=== PATIENT | male | born 1955 | race Two or more races ===

== ENCOUNTER → 2024-06-15 | Outpatient (CLI) | payer MEDICARE ==
[2024-06-15 16:00] LABS: INR 4.15 sec (0.93-1.11); Prothrombin Time 40.8 sec (9.9-11.9)
== END | disposition home or self-care (01) ==
LOC: LABWHC1 10:56
DX: Z00.00 Encounter for general adult medical examination without abnormal findings (principal)
CPT/HCPCS: 36415; 85610

== ENCOUNTER → 2024-06-20 | Outpatient (CLI) | payer MEDICARE ==
[2024-06-20 16:11] LABS: INR 2.59 sec (0.93-1.11); Prothrombin Time 26.3 sec (9.9-11.9)
== END | disposition home or self-care (01) ==
LOC: LABWHC1 12:00
DX: Z95.2 Presence of prosthetic heart valve (principal)
CPT/HCPCS: 36415; 85610

== ENCOUNTER → 2024-06-29 | Outpatient (CLI) | payer MEDICARE ==
[2024-06-29 16:08] LABS: INR 1.91 sec (0.93-1.11); Prothrombin Time 19.8 sec (9.9-11.9)
[2024-06-29 16:10] LABS: HCT 30.8 % (39.6-50.0); HGB 9.9 g/dL (13.0-17.0); MCH 30.9 pg (27.0-32.0); MCHC 32.1 g/dL (32.0-37.0); MCV 96.3 FL (80.0-97.0); Mean Platelet Volume 10.6 FL (9.5-12.2); NRBC Per 100 WBC 0 X 10*3/uL (0.00-0.01); Platelet Count 215 X 10*3/uL (140-440); WBC 6.59 X 10*3/uL (4.50-10.00)
[2024-06-29 16:45] LABS: % Iron Saturation 16.67 (15.00-50.00); ALT 30 U/L (10-49); AST 41 U/L (14-35); Albumin/Globulin Ratio 1.82 Ratio (1.60-3.17); Alkaline Phosphatase 130 U/L (41-126); Blood Urea Nitrogen 43.2 mg/dL (9.0-27.0); Calcium 10.6 mg/dL (8.7-10.3); Carbon Dioxide 25.5 mmol/L (21.6-31.8); Chloride 101 mmol/L (96-109); Chol/HDL Ratio 2.94 Ratio; Globulin 2.2 g/dL (1.6-3.3); Glucose 80 mg/dL (70-110); Iron 60 UG/DL (65-175); LDL Cholesterol,Calculated 65.1 mg/dL (0.0-131.0); Potassium 4.9 mmol/L (3.5-5.5); Prostate Specific Antigen 3.19 ng/mL (0.000-4.500); Sodium 137 mmol/L (135-145); Total Bilirubin 0.9 mg/dL (0.3-1.2); Total Iron Binding Capacity 360 UG/DL (228-460); Total Protein 6.2 g/dL (6.2-8.2)
[2024-06-29 16:48] LABS: Magnesium 0.9 mg/dL (1.5-2.4)
[2024-06-29 18:27] LABS: Microalbumin Creatinine Ratio <9 mg/g Cr (0-30)
== END | disposition home or self-care (01) ==
LOC: LABWHC1 09:38
CPT/HCPCS: 36415; 80053; 80061; 82043; 82570; 83540; 83550; 83735; 84153; 85027; 85610

== ENCOUNTER 2024-12-14 13:44 | Emergency (ER) | payer MEDICARE ==
[2024-12-14 14:51] LABS: Glucose,Whole Blood 94 mg/dL (70-110)
[2024-12-14 14:53] LABS: Basophils # (A) 0.03 10*3/uL (0.00-0.10); Basophils % (A) 0.4 %; HGB 9.8 g/dL (13.0-17.0); Lymphocytes # (A) 1.05 10*3/uL (0.90-5.00); Lymphocytes % (A) 12.6 %; MCH 27.5 pg (27.0-32.0); MCHC 33.8 g/dL (32.0-37.0); MCV 81.5 fL (80.0-97.0); Mean Platelet Volume 10.4 fL (9.5-12.2); Monocytes # (A) 0.77 10*3/uL (0.20-1.00); Monocytes % (A) 9.2 %; Neutrophils # (A) 6.47 10*3/uL (1.80-7.70); Neutrophils % (A) 77.3 %; Platelet Count 170 10*3/uL (140-440); RBC 3.56 10*6/uL (4.40-5.60); RDW 17.2 % (11.5-14.5); WBC 8.36 10*3/uL (4.50-10.00)
--- NOTE | 2024-12-14 14:55 | ED ---
General Adult HPI - General Source: patient, EMS, RN notes reviewed Mode of arrival: EMS Limitations: no limitations <Denia Saleem - Last Filed: 12/14/24 20:24> <Messi Meier - Last Filed: 12/14/24 20:57> <Sherri Sheets - Last Filed: 12/15/24 00:27> - General Chief complaint: Extremity Injury, Lower Stated complaint: confusion, right leg pain Time Seen by Provider: 12/14/24 13:53 - History of Present Illness Initial comments: 69-year-old male presents to the emergency department for evaluation of confusion and right leg pain. Patient states that both of the symptoms started when he woke up today around 8 AM. He states that he was confused about what medications he was supposed to be taking although he has it written down on the bottles. He also notes that he was unable to get out of bed because of pain in his right leg. He states that he attempted to get out of bed for 2 hours due to the pain but then had to call for help. He is on Coumadin for A-fib. He reports a history of thoracic aortic dissection. He also reports that he has been dealing with some low magnesium and therefore takes mag oxide 400 3 times daily. (Denia Saleem) - Related Data Home Medications Medication Instructions Recorded Confirmed Atorvastatin [Lipitor] 10 mg PO HS 12/14/24 12/14/24 Calcium Carbonate 500 mg PO QAM 12/14/24 12/14/24 Losartan Potassium [Cozaar] 100 mg PO QAM 12/14/24 12/14/24 Magnesium Oxide [Mag-Ox] 400 mg PO TID@0000,0800,159912/14/24 12/14/24 Metoprolol Tartrate [Lopressor] 100 mg PO BID 12/14/24 12/14/24 [place]-3/Dha/Epa/Fish Oil [Fish Oil 1 cap PO DAILY@1600 12/14/24 12/14/24 1,000 mg Softgel] Omeprazole [PriLOSEC] 20 mg PO QAM 12/14/24 12/14/24 Potassium Chloride [Klor-Con M20] 20 meq PO QAM 12/14/24 12/14/24 Triamterene/Hydrochlorothiazid 1 tab PO QAM 12/14/24 12/14/24 [Triamterene-Hctz 37.5-25 mg Tb] Warfarin [Coumadin] 10 mg PO DAILY@199912/14/24 12/14/24 metFORMIN HCL [Glucophage] 500 mg PO QAM 12/14/24 12/14/24 Allergies Allergy/AdvReac Type Severity Reaction Status Date / Time Iodinated Contrast Media Allergy Anaphylaxis Verified 12/14/24 14:56 Review of Systems ROS Other: All systems not noted in ROS Statement are negative. <Denia Saleem - Last Filed: 12/14/24 20:24> ROS Other: All systems not noted in ROS Statement are negative. <Messi Meier - Last Filed: 12/14/24 20:57> ROS Other: All systems not noted in ROS Statement are negative. <Sherri Sheets - Last Filed: 12/15/24 00:27> ROS Statement: Those systems with pertinent positive or pertinent negative responses have been documented in the HPI. Past Medical History Past Medical History: Atrial Fibrillation, CVA/TIA, Diabetes Mellitus, Hyperlipidemia, Hypertension Additional Past Medical History / Comment(s): Dissected aortic artery with was repaired with titanium heart valve, "desending aortic 5-7mm flap" History of Any Multi-Drug Resistant Organisms: None Reported Past Surgical History: Tonsillectomy Past Psychological History: No Psychological Hx Reported Smoking Status: Never smoker Past Alcohol Use History: None Reported Past Drug Use History: Marijuana <Denia Saleem - Last Filed: 12/14/24 20:24> General Exam Limitations: no limitations General appearance: alert, in no apparent distress Head exam: Present: atraumatic, normocephalic, normal inspection Eye exam: Present: normal appearance, PERRL, EOMI. Absent: scleral icterus, conjunctival injection, periorbital swelling Respiratory exam: Present: normal lung sounds bilaterally. Absent: respiratory distress, wheezes, rales, rhonchi, stridor Cardiovascular Exam: Present: regular rate, normal rhythm, normal heart sounds. Absent: systolic murmur, diastolic murmur, rubs, gallop, clicks GI/Abdominal exam: Present: soft, normal bowel sounds. Absent: distended, tenderness, guarding, rebound, rigid Extremities exam: Present: other (Distal pulses present in bilateral lower extremities). Absent: full ROM (Decreased range of motion at the right hip due to pain) Back exam: Present: normal inspection Neurological exam: Present: alert, oriented X3 Psychiatric exam: Present: normal affect, normal mood Skin exam: Present: warm, dry, intact, normal color. Absent: rash <Denia Saleem - Last Filed: 12/14/24 20:24> Course Vital Signs 12/14/24 12/14/24 12/14/24 13:48 14:48 18:00 Temperature 98.1 F Pulse Rate 72 61 88 Respiratory 18 20 16 Rate Blood Pressure 157/95 164/99 106/62 O2 Sat by Pulse 93 L 100 97 Oximetry 12/14/24 12/14/24 12/15/24 19:46 21:17 00:07 Temperature 98.7 F Pulse Rate 75 87 79 Respiratory 17 17 16 Rate Blood Pressure 124/56 136/86 126/74 O2 Sat by Pulse 99 99 99 Oximetry Medical Decision Making - Lab Data Result diagrams: 12/14/24 14:47 12/14/24 14:47 <Denia Saleem - Last Filed: 12/14/24 20:24> - Lab Data Result diagrams: 12/14/24 14:47 12/14/24 14:47 <Messi Meier - Last Filed: 12/14/24 20:57> - Lab Data Result diagrams: 12/14/24 14:47 12/14/24 14:47 <Sherri Sheets - Last Filed: 12/15/24 00:27> - Medical Decision Making Was pt. sent in by a medical professional or institution (, PA, HOSE CEMENTER, urgent care, hospital, or intermediate...) When possible be specific @ -[No] Did you speak to anyone other than the patient for history (EMS, parent, family, police, friend...)? What history was obtained from this source @ -[No] Did you review nursing and triage notes (agree or disagree)? Why? @ -[I reviewed and agree with nursing and triage notes] Were old charts reviewed (outside hosp., previous admission, EMS record, old EKG, old radiological studies, urgent care reports/EKG's, intermediate records)? Report findings @ -[No old charts were reviewed] Differential Diagnosis (chest pain, altered mental status, abdominal pain women, abdominal pain men, vaginal bleeding, weakness, fever, dyspnea, syncope, headache, dizziness, GI bleed, back pain, seizure, CVA, palpatations, mental health, musculoskeletal)? @ -Differential Musculoskeletal Muscular strain, contusion, ligament sprain, fracture, arthritis, septic arthritis, bursitis, cellulitis, muscle spasm, nerve compression, DVT, arterial occlusion, herpes zoster, electrolyte abnormality, tumor.... This is not meant to be in all inclusive list EKG interpreted by me (3pts min.). @ -[EKG [id number] shows A-fib rate 66, QRS 97, QTQTc [id number]] X-rays interpreted by me (1pt min.). @ -Chest x-ray revealsBilateral lower lobe subsegmental atelectasis, no focal consolidation CT interpreted by me (1pt min.). @ -CT of the brain reveals no acute bleed or mass effect, mild age-appropriate senescent changes U/S interpreted by me (1pt. min.). @ -[None done] What testing was considered but not performed or refused? (CT, X-rays, U/S, labs)? Why? @ -[None] What meds were considered but not given or refused? Why? @ -[None] Did you discuss the management of the patient with other professionals (professionals i.e. , PA, HOSE CEMENTER, lab, RT, psych nurse, director social service, lawyer real estate, teacher, ecological technical officer, employment evaluator/case manager)? Give summary @ -[Management discussed with Dr. Vance who recommends reversal of the Coumadin and likely transferred to a facility with higher level of care. Case was discussed with [facility] transfer adelanto. I discussed the case with Dr. Carlyle Malik, cardiothoracic surgery at [facility] who recommend the patient be transferred to the medical ICU] Was smoking cessation discussed for >3mins.? @ -[No] Was critical care preformed (if so, how long)? @ -[No] Were there social determinants of health that impacted care today? How? (Homelessness, low income, unemployed, alcoholism, drug addiction, transportation, low edu. Level, literacy, decrease access to med. care, usp, rehab)? @ -[No] Was there de-escalation of care discussed even if they declined (Discuss DNR or withdrawal of care, Hospice)? DNR status @ -[No] What co-morbidities impacted this encounter? (DM, HTN, Smoking, COPD, CAD, Cancer, CVA, ARF, Chemo, Hep., AIDS, mental health diagnosis, sleep apnea, morbid obesity)? @ -[Aortic dissection, A-fib] Was patient admitted / discharged? Hospital course, mention meds given and route, prescriptions, significant lab abnormalities, going to OR and other pertinent info. @ -[Transferred. Patient presented to the emergency department for right leg pain and confusion.Laboratory studies obtained revealing no significant leukocytosis, hemoglobin 9.8 which is stable for the patient; patient has significantly elevated INR at 7.6; CMP reveals potassium of 3.0 which was replaced orally, calcium 6.5 which was replaced IV, magnesium less than 0.4 which was also replaced IV. UA shows no evidence of infectious process urine drug screen positive for marijuana.. Brain CT shows no evidence of acute intracranial hemorrhage. Chest x-ray reveals findings consistent with atelectasis with no focal infiltrate. 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 No evidence of vascular occlusion. There is asymmetric enlargement of the right iliac us muscle with patchy heterogenous appearance and regions of fluid attenuation, the etiology could be intramuscular hematoma versus abscess versus other there is also small volume simple appearing fluid throughout the right paracolic gutter extending into the right pelvis which could represent a ruptured renal cyst versus other etiology. I discussed the case with vascular surgery who recommends reversal of Coumadin and likely transfer to a facility with higher level of care as the patient has been treated at [facility] in the past he recommends that the patient go there. I discussed the case with [facility] transfer center. Discussed with Dr. Carlyle Malik, cardiothoracic surgery at [facility] ] Undiagnosed new problem with uncertain prognosis? @ -[No] Drug Therapy requiring intensive monitoring for toxicity (Heparin, Nitro, Insulin, Cardizem)? @ -[No] Were any procedures done? @ -[No] Diagnosis/symptom? @ -[Hypomagnesemia, hypocalcemia, muscle hematoma] Acute, or Chronic, or Acute on Chronic? @ -Acute Uncomplicated (without systemic symptoms) or Complicated (systemic symptoms)? @ -Complicated Side effects of treatment? @ -[Patient on Coumadin, elevated INR] Exacerbation, Progression, or Severe Exacerbation? @ -[No] Poses a threat to life or bodily function? How? (Chest pain, USA, NC, pneumonia, PE, COPD, DKA, ARF, appy, cholecystitis, CVA, Diverticulitis, Homicidal, House icidal, threat to staff... and all critical care pts) @ -[Severe hypomagnesemia] (Denia Saleem) Patient was reevaluated myself, Dr. Meier. Patient still complaining of some discomfort left inguinal type region. CT reviewed. Concern for possible hematoma in the iliac muscle. Patient has coagulopathy. Patient was provided vitamin K. Patient has dissection which is reported as chronic. No evidence of acute occlusion. We are still attempting to transfer patient at this time, still waiting on further confirmation from [facility]. Patient updated on results and plan at this point. Patient does have several electrolyte abnormalities that have been replaced. Case will be endorsed to Dr. Sheets pending final disposition. (Messi Meier) [phone]- Spoke with Dr. Thapa at [facility] from SICU - accepts patient - awaiting bed placement at this time 1225 am 12/15/24 - called [facility] - bed available - 2606 bed A PCU. EMS called at this time (Sherri Sheets) - Lab Data Lab Results 12/14/24 12/14/24 12/14/24 Range/Units 14:47 14:47 14:47 WBC 8.36 (4.50-10.00) 10*3/uL RBC 3.56 L (4.40-5.60) 10*6/uL Hgb 9.8 L (13.0-17.0) g/dL Hct 29.0 L (39.6-50.0) % MCV 81.5 (80.0-97.0) fL MCH 27.5 (27.0-32.0) pg MCHC 33.8 (32.0-37.0) g/dL Plt Count 170 (140-440) 10*3/uL MPV 10.4 (9.5-12.2) fL Immature Gran % (Auto) 0.5 % Neutrophils % 77.3 % Lymphocytes % 12.6 % Monocytes % 9.2 % Eosinophils % 0.0 % Basophils % 0.4 % Immature Gran # 0.04 (0.00-0.04) 10*3/uL Neutrophils # 6.47 (1.80-7.70) 10*3/uL Lymphocytes # 1.05 (0.90-5.00) 10*3/uL Monocytes # 0.77 (0.20-1.00) 10*3/uL Eosinophils # 0.00 L (0.04-0.35) 10*3/uL Basophils # 0.03 (0.00-0.10) 10*3/uL PT 76.0 H (10.0-12.5) sec INR 7.6 H* (<1.2) APTT 33.8 H (22.0-30.0) sec Sodium 138 (137-145) mmol/L Potassium 3.0 L (3.5-5.1) mmol/L Chloride 105 (98-107) mmol/L Carbon Dioxide 23 (22-30) mmol/L Anion Gap 10 mmol/L BUN 24 H (9-20) mg/dL Creatinine 1.25 (0.66-1.25) mg/dL Est GFR (CKD-EPI)AfAm 68 (>60 ml/min/1.73 sqM) Est GFR (CKD-EPI)NonAf 59 (>60 ml/min/1.73 sqM) Glucose 81 (74-99) mg/dL POC Glucose (mg/dL) (70-110) mg/dL POC Glu Marketing Secretary ID Calcium 6.5 L (8.4-10.2) mg/dL Ionized Calcium Amilcar (4.5-5.3) mg/dL Phosphorus (2.5-4.5) mg/dL Magnesium (1.6-2.3) mg/dL Total Bilirubin 1.6 H (0.2-1.3) mg/dL AST 32 (17-59) U/L ALT 16 (4-49) U/L Alkaline Phosphatase 65 (38-126) U/L Troponin I (0.000-0.034) ng/mL Total Protein 6.1 L (6.3-8.2) g/dL Albumin 3.6 (3.5-5.0) g/dL Urine Color Urine Appearance (Clear) Urine pH (5.0-8.0) Ur Specific [place] (1.001-1.035) Urine Protein (Negative) Urine Glucose (UA) (Negative) Urine Ketones (Negative) Urine Blood (Negative) Urine Nitrite (Negative) Urine Bilirubin (Negative) Urine Urobilinogen (<2.0) mg/dL Ur Leukocyte Esterase (Negative) Urine RBC (0-5) /hpf Urine WBC (0-5) /hpf Ur Squamous Epith Cells (0-4) /hpf Urine Opiates Screen (NotDetected) Ur Oxycodone Screen (NotDetected) Urine Methadone Screen (NotDetected) Ur Barbiturates Screen (NotDetected) U Tricyclic Antidepress (NotDetected) Ur Phencyclidine Scrn (NotDetected) Ur Amphetamines Screen (NotDetected) U Methamphetamines Scrn (NotDetected) U Benzodiazepines Scrn (NotDetected) Urine Cocaine Screen (NotDetected) U Marijuana (THC) Screen (NotDetected) 12/14/24 12/14/24 12/14/24 Range/Units 14:47 14:50 15:43 WBC (4.50-10.00) 10*3/uL RBC (4.40-5.60) 10*6/uL Hgb (13.0-17.0) g/dL Hct (39.6-50.0) % MCV (80.0-97.0) fL MCH (27.0-32.0) pg MCHC (32.0-37.0) g/dL Plt Count (140-440) 10*3/uL MPV (9.5-12.2) fL Immature Gran % (Auto) % Neutrophils % % Lymphocytes % % Monocytes % % Eosinophils % % Basophils % % Immature Gran # (0.00-0.04) 10*3/uL Neutrophils # (1.80-7.70) 10*3/uL Lymphocytes # (0.90-5.00) 10*3/uL Monocytes # (0.20-1.00) 10*3/uL Eosinophils # (0.04-0.35) 10*3/uL Basophils # (0.00-0.10) 10*3/uL PT (10.0-12.5) sec INR (<1.2) APTT (22.0-30.0) sec Sodium (137-145) mmol/L Potassium (3.5-5.1) mmol/L Chloride (98-107) mmol/L Carbon Dioxide (22-30) mmol/L Anion Gap mmol/L BUN (9-20) mg/dL Creatinine (0.66-1.25) mg/dL Est GFR (CKD-EPI)AfAm (>60 ml/min/1.73 sqM) Est GFR (CKD-EPI)NonAf (>60 ml/min/1.73 sqM) Glucose (74-99) mg/dL POC Glucose (mg/dL) 94 (70-110) mg/dL POC Glu Marketing Secretary ID Juaquin Drake Calcium (8.4-10.2) mg/dL Ionized Calcium Amilcar (4.5-5.3) mg/dL Phosphorus 3.8 (2.5-4.5) mg/dL Magnesium <0.4 L* (1.6-2.3) mg/dL Total Bilirubin (0.2-1.3) mg/dL AST (17-59) U/L ALT (4-49) U/L Alkaline Phosphatase (38-126) U/L Troponin I 0.013 (0.000-0.034) ng/mL Total Protein (6.3-8.2) g/dL Albumin (3.5-5.0) g/dL Urine Color Urine Appearance (Clear) Urine pH (5.0-8.0) Ur Specific [place] (1.001-1.035) Urine Protein (Negative) Urine Glucose (UA) (Negative) Urine Ketones (Negative) Urine Blood (Negative) Urine Nitrite (Negative) Urine Bilirubin (Negative) Urine Urobilinogen (<2.0) mg/dL Ur Leukocyte Esterase (Negative) Urine RBC (0-5) /hpf Urine WBC (0-5) /hpf Ur Squamous Epith Cells (0-4) /hpf Urine Opiates Screen (NotDetected) Ur Oxycodone Screen (NotDetected) Urine Methadone Screen (NotDetected) Ur Barbiturates Screen (NotDetected) U Tricyclic Antidepress (NotDetected) Ur Phencyclidine Scrn (NotDetected) Ur Amphetamines Screen (NotDetected) U Methamphetamines Scrn (NotDetected) U Benzodiazepines Scrn (NotDetected) Urine Cocaine Screen (NotDetected) U Marijuana (THC) Screen (NotDetected) 12/14/24 12/14/24 Range/Units 16:00 19:40 WBC (4.50-10.00) 10*3/uL RBC (4.40-5.60) 10*6/uL Hgb (13.0-17.0) g/dL Hct (39.6-50.0) % MCV (80.0-97.0) fL MCH (27.0-32.0) pg MCHC (32.0-37.0) g/dL Plt Count (140-440) 10*3/uL MPV (9.5-12.2) fL Immature Gran % (Auto) % Neutrophils % % Lymphocytes % % Monocytes % % Eosinophils % % Basophils % % Immature Gran # (0.00-0.04) 10*3/uL Neutrophils # (1.80-7.70) 10*3/uL Lymphocytes # (0.90-5.00) 10*3/uL Monocytes # (0.20-1.00) 10*3/uL Eosinophils # (0.04-0.35) 10*3/uL Basophils # (0.00-0.10) 10*3/uL PT (10.0-12.5) sec INR (<1.2) APTT (22.0-30.0) sec Sodium (137-145) mmol/L Potassium (3.5-5.1) mmol/L Chloride (98-107) mmol/L Carbon Dioxide (22-30) mmol/L Anion Gap mmol/L BUN (9-20) mg/dL Creatinine (0.66-1.25) mg/dL Est GFR (CKD-EPI)AfAm (>60 ml/min/1.73 sqM) Est GFR (CKD-EPI)NonAf (>60 ml/min/1.73 sqM) Glucose (74-99) mg/dL POC Glucose (mg/dL) (70-110) mg/dL POC Glu Marketing Secretary ID Calcium (8.4-10.2) mg/dL Ionized Calcium Amilcar 3.1 L* (4.5-5.3) mg/dL Phosphorus (2.5-4.5) mg/dL Magnesium (1.6-2.3) mg/dL Total Bilirubin (0.2-1.3) mg/dL AST (17-59) U/L ALT (4-49) U/L Alkaline Phosphatase (38-126) U/L Troponin I (0.000-0.034) ng/mL Total Protein (6.3-8.2) g/dL Albumin (3.5-5.0) g/dL Urine Color Yellow Urine Appearance Clear (Clear) Urine pH 6.0 (5.0-8.0) Ur Specific [place] 1.013 (1.001-1.035) Urine Protein Negative (Negative) Urine Glucose (UA) Negative (Negative) Urine Ketones Negative (Negative) Urine Blood Trace H (Negative) Urine Nitrite Negative (Negative) Urine Bilirubin Negative (Negative) Urine Urobilinogen <2.0 (<2.0) mg/dL Ur Leukocyte Esterase Negative (Negative) Urine RBC 2 (0-5) /hpf Urine WBC 2 (0-5) /hpf Ur Squamous Epith Cells <1 (0-4) /hpf Urine Opiates Screen Not Detected (NotDetected) Ur Oxycodone Screen Not Detected (NotDetected) Urine Methadone Screen Not Detected (NotDetected) Ur Barbiturates Screen Not Detected (NotDetected) U Tricyclic Antidepress Not Detected (NotDetected) Ur Phencyclidine Scrn Not Detected (NotDetected) Ur Amphetamines Screen Not Detected (NotDetected) U Methamphetamines Scrn Not Detected (NotDetected) U Benzodiazepines Scrn Not Detected (NotDetected) Urine Cocaine Screen Not Detected (NotDetected) U Marijuana (THC) Screen Detected H (NotDetected) Critical Care Time Critical Care Time: Yes <Messi Meier - Last Filed: 12/14/24 20:57> Disposition <Denia Saleem - Last Filed: 12/14/24 20:24> Is patient prescribed a controlled substance at d/c from ED?: No - Out of Hospital Transfer - Req. Specs Out of Hospital Transfer - Requested Specifics: Medical ICU <Messi Meier - Last Filed: 12/14/24 20:57> Is patient prescribed a controlled substance at d/c from ED?: No Time of Disposition: 00:27 - Out of Hospital Transfer - Req. Specs Out of Hospital Transfer - Requested Specifics: Medical ICU ([facility]) <Sherri Sheets - Last Filed: 12/15/24 00:27> Clinical Impression: Hypomagnesemia, Hypocalcemia, Hematoma of muscle, Supratherapeutic INR Disposition: OTHER INSTITUTION NOT DEFINED Condition: Serious Referrals: Sunny Pierce DO [Primary Care Provider] - 1-2 days
--- NOTE | 2024-12-14 15:20 | XR ---
EXAMINATION TYPE: XR chest 2V DATE OF EXAM: 12/14/2024 3:14 PM COMPARISON: None TECHNIQUE: XR chest 2V Frontal and lateral views of the chest. CLINICAL INDICATION:Male, 69 years old with history of altered mental status; FINDINGS: Lungs/Pleura: No pleural effusion or pneumothorax. No focal consolidation. Minimal dependent bilatera l lower lobe subsegmental atelectasis. Pulmonary vascularity: Unremarkable. Heart/mediastinum: Cardiomediastinal silhouette is prominent in size. Cardiac valvular replacement. Musculoskeletal: No acute osseous pathology. Midline sternotomy wires are noted. Multilevel degenerat finesse disc disease of the thoracic spine. IMPRESSION: Minimal dependent bilateral lower lobe subsegmental atelectasis. No focal consolidation. [facility], , 12/14/2024 3:18 PM
[2024-12-14 15:22] LABS: ALT 16 U/L (4-49); AST 32 U/L (17-59); African American GFR (CKD) 68 (>60 ml/min/1.73 sqM); Albumin 3.6 g/dL (3.5-5.0); Alkaline Phosphatase 65 U/L (38-126); Anion Gap 10 mmol/L; Blood Urea Nitrogen 24 mg/dL (9-20); Calcium 6.5 mg/dL (8.4-10.2); Carbon Dioxide 23 mmol/L (22-30); Chloride 105 mmol/L (98-107); Glucose 81 mg/dL (74-99); Non-African American GFR(CKD) 59 (>60 ml/min/1.73 sqM); Sodium 138 mmol/L (137-145); Total Bilirubin 1.6 mg/dL (0.2-1.3); Total Protein 6.1 g/dL (6.3-8.2)
[2024-12-14 15:47] LABS: Partial Thromboplastin Time 33.8 sec (22.0-30.0)
[2024-12-14 15:52] LABS: Phosphorus 3.8 mg/dL (2.5-4.5)
[2024-12-14 15:59] LABS: Magnesium <0.4 mg/dL (1.6-2.3)
[2024-12-14] MEDS ORDERED: Magnesium Replacement Protocol 1 EACH MISC MISCELLANE PRN (16:02)
[2024-12-14] MEDS ORDERED: Potassium Replacement Protocol 1 EACH MISC MISCELLANE PRN (16:03)
[2024-12-14 16:20] LABS: INR 7.6 (<1.2)
[2024-12-14 16:23] LABS: Amphetamine Screen,Urine Not Detected (NotDetected); Barbiturate Screen,Urine Not Detected (NotDetected); Benzodiazepines Screen,Urine Not Detected (NotDetected); Cocaine Screen,Urine Not Detected (NotDetected); Methadone Screen, Urine Not Detected (NotDetected); Opiate Screen,Urine Not Detected (NotDetected); Oxycodone Screen, Urine Not Detected (NotDetected); Phencyclidine Screen,Urine Not Detected (NotDetected); Tricyclic Antidepressant,Urine Not Detected (NotDetected); Urn Cannabinoid Scrn Detected (NotDetected)
--- NOTE | 2024-12-14 16:23 | CT ---
EXAMINATION TYPE: CT brain wo con DATE OF EXAM: 12/14/2024 COMPARISON: None CLINICAL INDICATION: Male, 69 years old with history of confusion; PHH, confusion CT DLP: 1243.4 mGycm Automated exposure control for dose reduction was used. FINDINGS: The ventricles, basal cisterns and sulci over the convexities are within normal limits for the patien t's age. There is no mass effect or shift of midline structures. No abnormal density is seen throughout the brain parenchyma and there is no acute intra or extra-axia l hemorrhage. The posterior fossa and brainstem, fourth ventricle and cerebellar pontine angles appear normal. The intraorbital contents appear normal and symmetric. There is mild chronic inflammatory change in the right maxillary sinus. Remaining paranasal sinuses a nd mastoid air cells are well aerated. IMPRESSION: 1. No acute bleed or mass effect. 2. Mild age appropriate senescent changes. 3. Mild chronic inflammatory change left maxillary sinus. [facility], , 12/14/2024 4:21 PM
[2024-12-14 16:26] LABS: Appearance,Urine Clear (Clear); Bilirubin,Urine Negative (Negative); Blood,Urine Trace (Negative); Color,Urine Yellow; Glucose,Urine (UA) Negative (Negative); Ketones,Urine Negative (Negative); Leukocyte Esterase,Urine Negative (Negative); Nitrite,Urine Negative (Negative); Protein,Urine Negative (Negative); RBC,Urine 2 /hpf (0-5); Specific Gravity,Urine 1.013 (1.001-1.035); Squamous Epithelial Cell,Urine <1 /hpf (0-4); Urobilinogen,Urine <2.0 mg/dL (<2.0); WBC,Urine 2 /hpf (0-5)
[2024-12-14] MEDS: MAGNESIUM SULFATE-D5W PMX 1 GM in DEXTROSE/WATER 1 100ML.BAG IVPB SCH ×2 (16:27→21:37)
[2024-12-14] MEDS: POTASSIUM CHLORIDE ER 20 MEQ TAB.ER PO SCH (16:29)
[2024-12-14] MEDS: diphenhydrAMINE 50 MG/ML 1 ML VIAL IVP STA (17:54)
[2024-12-14] MEDS: FAMOTIDINE 20 MG/2 ML VIAL IV STA (17:55)
[2024-12-14] MEDS: methylPREDNISolone SOD SUCCI 125 MG/2 ML VIAL IV STA (17:58)
--- NOTE | 2024-12-14 19:01 | CT ---
EXAMINATION TYPE: CT angio abd pelvis W Run Off CT DLP: 3455.9 mGycm, Automated exposure control for dose reduction was used. DATE OF EXAM: 12/14/2024 6:39 PM COMPARISON: Chest radiograph 12/14/2024 CLINICAL INDICATION:Male, 69 years old with history of leg pain, hx of dissection'; Patient reports t o EC from home with complaints of right leg pain and confusion that started today. Patient denies any injuries. Hx of dissection. TECHNIQUE: Multiple thin slice sub-millimeter images were obtained through the abdomen, pelvis, and l ower extremities before and after administration of contrast. Patient was given Isovue 370, 100 cc i ntravenously. 3-D reconstructed images and maximum intensity projection images were obtained of the abdomen, pelvis, and lower extremities. FINDINGS: CTA Abdomen and pelvis: Fusiform aneurysmal dilatation of the descending thoracic aorta just above th e hiatus measuring up to 4.7 cm. The aneurysmal dilatation extends throughout the abdominal aorta zach suring up to 3.9 cm. No evidence for intramural hematoma on noncontrast imaging. Dissection flap iden tified within the descending thoracic aorta and extending throughout the abdominal aorta and into the right common iliac artery and right external iliac artery. There is enhancement throughout the false lumen. Atherosclerotic plaque of the aorta and its branches. The origins of the superior mesenteric artery, renal arteries, inferior mesenteric artery, and celiac axis are patent. It is difficult to de termine which is the true and false lumen due to similar attenuation of both lumens. Aneurysmal dilat ation of the bilateral common iliac arteries with the right measuring up to 2.0 cm and the left measu ring up to 2.3 cm. Atherosclerotic plaquing with some mural thrombus formation is identified in the c ommon iliac arteries. CTA Lower extremities: Right: The common femoral and superficial femoral arteries are patent. The popliteal artery is patent . Anterior and posterior tibial arteries as well as the peroneal artery are patent. Anterior and post erior tibial arteries cross the ankle. Left: The common femoral and superficial femoral arteries are patent. The popliteal artery is patent. Anterior and posterior tibial arteries as well as the peroneal artery are patent. Anterior and poste rior tibial arteries cross the ankle. VISCERA: The liver, spleen, adrenal glands, kidneys, pancreas, and gallbladder are not optimally enha nced due the arterial phase utilized. LIVER: Unremarkable GALLBLADDER AND BILE DUCTS: Unremarkable. PANCREAS: Unremarkable. SPLEEN: Unremarkable. ADRENAL GLANDS: Unremarkable. KIDNEYS AND URETERS: No evidence of hydronephrosis or renal calculus. Bilateral simple appearing monica l cyst. No follow-up recommended. PELVIS BLADDER: Unremarkable REPRODUCTIVE: Unremarkable. ABDOMEN & PELVIS STOMACH AND BOWEL: Stomach and duodenum are unremarkable. No focal bowel wall thickening. No evidence of bowel obstruction. PERITONEUM: No evidence of pneumoperitoneum. Small amount of simple appearing fluid within the right paracolic gutter extending to the right pelvis. VASCULATURE: No evidence of aortic aneurysm. MUSCULOSKELETAL: No acute osseous abnormalities. Asymmetric enlargement of the right iliacus muscle w ith heterogenous appearance. No focal region of hyperattenuation. Bilateral lower extremity subcutane ous edema with right greater than left. LYMPH NODES: No evidence for lymphadenopathy. SOFT TISSUE/ABDOMINAL WALL: Unremarkable LOWER CHEST: The visualized lung bases are clear. Dense mitral anus calcifications. IMPRESSION: 1. Aneurysmal dilatation of the visualized distal thoracic aorta throughout the abdominal aorta. Add itional aneurysmal dilatation of the bilateral common iliac arteries. Dissection of the thoracic aort a extending through the abdominal aorta into the right common iliac artery and into the right externa l iliac artery. There is similar contrast opacification of the true and false lumens. Patient has rep orted history of dissection. No comparison available. No evidence for vascular occlusion. 2. Asymmetric enlargement of the right iliacus muscle with patchy heterogenous appearance and region s of fluid attenuation. No significant hyperdense focus identified. Etiologies include intramuscular hematoma versus abscess versus other. Consider tissue sampling. 3. Small volume simple appearing fluid throughout the right paracolic gutter extending into the right pelvis. Could represent a ruptured renal cyst versus other etiologies. [facility], , 12/14/2024 6:58 PM
[2024-12-14] MEDS: CALCIUM GLUCONATE IN NACL 1 GM in SALINE 1 100ML.BAG IVPB ONE (19:41)
[2024-12-14] MEDS: PHYTONADIONE 5 MG in SODIUM CHLORIDE 0.9% 50 ML IVPB ONE (20:16)
[2024-12-14] MEDS: MORPHINE SULFATE 4 MG/ML SYRINGE IVP STA (21:18)
[2024-12-14] MEDS: POTASSIUM CHLORIDE 20 MEQ in WATER FOR INJECTION 1 100ML.BAG IVPB STA (21:20)
[2024-12-14] MEDS: MAGNESIUM OXIDE 400 MG TAB PO SCH (21:45)
[2024-12-15 00:08] VITALS: BP 126/74
[2024-12-15 01:03] VITALS: PULSE 86; RESP 17; TEMP 98.2
== END 2024-12-15 01:03 | disposition other institution (70) ==
LOC: EC 13:44
DX: S30.1XXA Contusion of abdominal wall, initial encounter (principal); E83.42 Hypomagnesemia; E83.51 Hypocalcemia; R79.1 Abnormal coagulation profile; Z91.041 Radiographic dye allergy status; X58.XXXA Exposure to other specified factors, initial encounter
CPT/HCPCS: 36415; 93005; 80053; 82330; 83735; 84100; 84484; 85025; 85610; 85730; 81001; 80306; 71046; 70450; 75635; 71275; 99285; 96365; 96368; 96367 ×2; 96366; 96375; J2270; J3430; J1200; J3480; J3475; J0613; J2919; J1308

== ENCOUNTER → 2024-12-21 | Outpatient (CLI) | payer MEDICARE ==
[2024-12-21 11:07] LABS: INR 1.5 (<1.2)
== END | disposition home or self-care (01) ==
LOC: LABWHC1 09:42
PROVIDERS: ATTEND Family Medicine
DX: Z79.01 Long term (current) use of anticoagulants (principal); Z95.4 Presence of other heart-valve replacement
CPT/HCPCS: 36415; 85610

== ENCOUNTER → 2024-12-23 | Outpatient (CLI) | payer MEDICARE ==
[2024-12-23 10:53] LABS: INR 2.5 (<1.2); Prothrombin Time 24.8 sec (10.0-12.5)
== END | disposition home or self-care (01) ==
LOC: LABWHC1 09:11
PROVIDERS: ATTEND Family Medicine
DX: Z79.01 Long term (current) use of anticoagulants (principal); Z95.4 Presence of other heart-valve replacement
CPT/HCPCS: 36415; 85610

== ENCOUNTER 2024-12-28 17:42 | Observation (INO) | payer MEDICARE ==
[2024-12-28 18:32] LABS: Basophils # (A) 0.08 10*3/uL (0.00-0.10); Eosinophils # (A) 0.25 10*3/uL (0.04-0.35); Eosinophils % (A) 3.1 %; HCT 34.6 % (39.6-50.0); HGB 11.3 g/dL (13.0-17.0); Lymphocytes % (A) 24.7 %; MCH 28.5 pg (27.0-32.0); MCHC 32.7 g/dL (32.0-37.0); Mean Platelet Volume 10.3 fL (9.5-12.2); Monocytes # (A) 0.82 10*3/uL (0.20-1.00); Monocytes % (A) 10.1 %; Neutrophils # (A) 4.87 10*3/uL (1.80-7.70); Neutrophils % (A) 60.2 %; Platelet Count 244 10*3/uL (140-440); RBC 3.97 10*6/uL (4.40-5.60); RDW 19.3 % (11.5-14.5); WBC 8.09 10*3/uL (4.50-10.00)
[2024-12-28 18:51] LABS: INR 2.8 (<1.2); Partial Thromboplastin Time 28.2 sec (22.0-30.0)
[2024-12-28 18:55] LABS: ALT 27 U/L (4-49); AST 38 U/L (17-59); African American GFR (CKD) 47 (>60 ml/min/1.73 sqM); Albumin 4.7 g/dL (3.5-5.0); Alkaline Phosphatase 73 U/L (38-126); Anion Gap 15 mmol/L; Blood Urea Nitrogen 50 mg/dL (9-20); Calcium 10.6 mg/dL (8.4-10.2); Carbon Dioxide 20 mmol/L (22-30); Chloride 104 mmol/L (98-107); Glucose 83 mg/dL (74-99); Non-African American GFR(CKD) 40 (>60 ml/min/1.73 sqM); Phosphorus 3.7 mg/dL (2.5-4.5); Potassium 4.4 mmol/L (3.5-5.1); Sodium 139 mmol/L (137-145); Total Bilirubin 1.9 mg/dL (0.2-1.3); Total Protein 7.7 g/dL (6.3-8.2)
[2024-12-28 18:59] LABS: Magnesium 0.7 mg/dL (1.6-2.3)
[2024-12-28 19:08] LABS: MCV 87.2 fL (80.0-97.0)
[2024-12-28] MEDS ORDERED: Magnesium Replacement Protocol 1 EACH MISC MISCELLANE PRN (19:08)
--- NOTE | 2024-12-28 19:08 | ED ---
Recheck HPI - General Chief Complaint: Recheck/Abnormal Lab/Rx Stated Complaint: Abnormal Labs Time Seen by Provider: 12/28/24 17:57 Source: patient, EMS, RN notes reviewed Mode of arrival: EMS Limitations: no limitations - History of Present Illness Initial Comments: This is a 69-year-old male who presents to the emergency department for low magnesium. Patient was discharged from [facility] last week. He had initially come to this facility with leg pain and confusion. He ended up being transferred to [facility] for an intramuscular hematoma and concerns of a thoracic dissection. 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 When he was transferred to [facility], states that they did not do anything other than monitor his vital signs for a week. He had lab work done today as part of the routine checkup following his discharge and he received a phone call saying that his magnesium was 0.8 and he needed to come to the emergency department. Patient states that he has been dealing with low magnesium levels and currently takes 400 mg of magnesium oxide every 8 hours. States that he otherwise feels fine for the most part. MD Complaint: abnormal lab - Related Data Home Medications Medication Instructions Recorded Confirmed Atorvastatin [Lipitor] 10 mg PO HS@199912/14/24 12/28/24 Calcium Carbonate 500 mg PO DAILY@79912/14/24 12/28/24 Losartan Potassium [Cozaar] 100 mg PO DAILY@79912/14/24 12/28/24 Magnesium Oxide [Mag-Ox] 400 mg PO TID@0000,08,159912/14/24 12/28/24 Metoprolol Tartrate [Lopressor] 100 mg PO BID@12/14/24 12/28/24 [place]-3/Dha/Epa/Fish Oil [Fish Oil 1 cap PO DAILY@159912/14/24 12/28/24 1,000 mg Softgel] Omeprazole [PriLOSEC] 20 mg PO DAILY@79912/14/24 12/28/24 Potassium Chloride [Klor-Con M20] 20 meq PO DAILY@79912/14/24 12/28/24 Triamterene/Hydrochlorothiazid 1 tab PO DAILY@79912/14/24 12/28/24 [Triamterene-Hctz 37.5-25 mg Tb] Warfarin [Coumadin] 12.5 mg PO HS@199912/14/24 12/28/24 metFORMIN HCL [Glucophage] 500 mg PO DAILY@0812/14/24 12/28/24 Allergies Allergy/AdvReac Type Severity Reaction Status Date / Time Iodinated Contrast Media Allergy Anaphylaxis Verified 12/28/24 19:47 Review of Systems ROS Statement: Those systems with pertinent positive or pertinent negative responses have been documented in the HPI. ROS Other: All systems not noted in ROS Statement are negative. Past Medical History Past Medical History: Atrial Fibrillation, CVA/TIA, Diabetes Mellitus, Hyperlipidemia, Hypertension Additional Past Medical History / Comment(s): Dissected aortic artery with was repaired with titanium heart valve, "desending aortic 5-7mm flap" History of Any Multi-Drug Resistant Organisms: None Reported Past Surgical History: Tonsillectomy Past Psychological History: No Psychological Hx Reported Smoking Status: Never smoker Past Alcohol Use History: None Reported Past Drug Use History: Marijuana General Exam Limitations: no limitations General appearance: alert, in no apparent distress Head exam: Present: atraumatic, normocephalic, normal inspection Respiratory exam: Present: normal lung sounds bilaterally. Absent: respiratory distress, wheezes, rales, rhonchi, stridor Cardiovascular Exam: Present: regular rate, normal rhythm Neurological exam: Present: alert, oriented X3, CN II-XII intact Psychiatric exam: Present: normal affect, normal mood Skin exam: Present: warm, dry, intact, normal color. Absent: rash Course Vital Signs 12/28/24 12/28/24 12/28/24 17:49 19:41 21:35 Temperature 97.7 F Pulse Rate 81 86 70 Respiratory 18 18 16 Rate Blood Pressure 93/58 100/67 114/63 O2 Sat by Pulse 98 96 96 Oximetry 12/28/24 23:39 Temperature Pulse Rate 73 Respiratory 18 Rate Blood Pressure 98/54 O2 Sat by Pulse 97 Oximetry Medical Decision Making - Medical Decision Making This is a 69-year-old male who presents to the emergency department for low magnesium levels. Was pt. sent in by a medical professional or institution? @ -His PCP Did you speak to anyone other than the patient for history? @ -No Did you review nursing and triage notes? @ -Yes, and I agree, it is accurate with regards to the patient's symptoms. Were old charts reviewed? @ -No Differential Diagnosis? @ -Renal function, dietary intake, medications, this is not meant to be an all- inclusive list. EKG interpreted by me (3pts min.)? @ -EKG interpreted by me demonstrating the following: Atrial fibrillation. Ventricular rate 84 bpm, QRS duration 105 ms, QTc 382 ms. X-rays interpreted by me (1pt min.)? @ -Not obtained CT interpreted by me (1pt min.)? @ -Not obtained U/S interpreted by me (1pt. min.)? @ -Not obtained What testing was considered but not performed? (CT, X-rays, U/S, labs)? Why? @ -None What meds were considered but not given? Why? @ -None Did you discuss the management of the patient with other professionals? @ -Yes, Mónica Luu with [facility], who accepts the patient for admission Did you reconcile home meds? @ -No Was smoking cessation discussed for >3mins.? @ -No Was critical care preformed (if so, how long)? @ -No Were there social determinants of health that impacted care today? How? (Homelessness, low income, unemployed, alcoholism, drug addiction, transportation, low edu. Level, literacy, decrease access to med. care, correction, re hab)? @ -No Was there de-escalation of care discussed even if they declined? (Discuss DNR or withdrawal of care, Hospice)? @ -No What co-morbidities impacted this encounter? (DM, HTN, Smoking, COPD, CAD, Cancer, CVA, Hep., AIDS, mental health diagnosis, sleep apnea, morbid obesity)? @ -A-fib, DM, HLD, HTN Was patient admitted / discharged? @ -Admitted. Lab work demonstrates hypomagnesemia with a magnesium of 0.7. He also has an WINSOME with a creatinine of 1.71 and eGFR of 40. Urinalysis negative for signs of infection. Magnesium protocol initiated and 4 g of magnesium sulfate were administered. He had also been given a liter bolus of IV fluids and started on maintenance fluids at 50 mL an hour. Patient admitted to medicine for hypomagnesemia and WINSOME. Consult placed for nephrology regarding both of these things. Case discussed with ED attending Dr. Sheets. Undiagnosed new problem with uncertain prognosis? @ -None Drug Therapy requiring intensive monitoring for toxicity (Heparin, Nitro, Insulin, Cardizem)? @ -None Were any procedures done? @ -None Diagnosis/symptom? @ -Hypomagnesemia, WINSOME Acute, or Chronic, or Acute on Chronic? @ -Acute Uncomplicated (without systemic symptoms) or Complicated (systemic symptoms)? @ -Uncomplicated Side effects of treatment? @ -None Exacerbation, Progression, or Severe Exacerbation] @ -Not applicable Poses a threat to life or bodily function? @ -Yes, persistently low magnesium can lead to arrhythmias, which can be life- threatening - Lab Data Result diagrams: 12/28/24 18:27 12/28/24 18:27 Lab Results 12/28/24 12/28/24 12/28/24 Range/Units 18:27 18:27 18:27 WBC 8.09 (4.50-10.00) 10*3/uL RBC 3.97 L (4.40-5.60) 10*6/uL Hgb 11.3 L (13.0-17.0) g/dL Hct 34.6 L (39.6-50.0) % MCV 87.2 D (80.0-97.0) fL MCH 28.5 (27.0-32.0) pg MCHC 32.7 (32.0-37.0) g/dL Plt Count 244 (140-440) 10*3/uL MPV 10.3 (9.5-12.2) fL Immature Gran % (Auto) 0.9 % Neutrophils % 60.2 % Lymphocytes % 24.7 % Monocytes % 10.1 % Eosinophils % 3.1 % Basophils % 1.0 % Immature Gran # 0.07 H (0.00-0.04) 10*3/uL Neutrophils # 4.87 (1.80-7.70) 10*3/uL Lymphocytes # 2.00 (0.90-5.00) 10*3/uL Monocytes # 0.82 (0.20-1.00) 10*3/uL Eosinophils # 0.25 (0.04-0.35) 10*3/uL Basophils # 0.08 (0.00-0.10) 10*3/uL PT 28.0 H (10.0-12.5) sec INR 2.8 H (<1.2) APTT 28.2 (22.0-30.0) sec Sodium 139 (137-145) mmol/L Potassium 4.4 (3.5-5.1) mmol/L Chloride 104 (98-107) mmol/L Carbon Dioxide 20 L (22-30) mmol/L Anion Gap 15 mmol/L BUN 50 H (9-20) mg/dL Creatinine 1.71 H (0.66-1.25) mg/dL Est GFR (CKD-EPI)AfAm 47 (>60 ml/min/1.73 sqM) Est GFR (CKD-EPI)NonAf 40 (>60 ml/min/1.73 sqM) Glucose 83 (74-99) mg/dL Calcium 10.6 H (8.4-10.2) mg/dL Phosphorus 3.7 (2.5-4.5) mg/dL Magnesium 0.7 L* (1.6-2.3) mg/dL Total Bilirubin 1.9 H (0.2-1.3) mg/dL AST 38 (17-59) U/L ALT 27 (4-49) U/L Alkaline Phosphatase 73 (38-126) U/L Total Protein 7.7 (6.3-8.2) g/dL Albumin 4.7 (3.5-5.0) g/dL Disposition Clinical Impression: Hypomagnesemia, WINSOME (acute kidney injury) Disposition: ADMITTED IP TO THIS HOSP
[2024-12-28] MEDS: SODIUM CHLORIDE 0.9% 1,000 ML IV ONE (19:13)
[2024-12-28] MEDS: MAGNESIUM SULFATE-D5W PMX 1 GM in DEXTROSE/WATER 1 100ML.BAG IVPB SCH (19:14)
[2024-12-28] MEDS ORDERED: NALOXONE 0.4 MG/ML 1 ML VIAL IV PRN (19:19)
[2024-12-28] MEDS ORDERED: ACETAMINOPHEN TAB 325 MG TAB PO PRN (19:19)
[2024-12-28] MEDS ORDERED: HYDROcodone/APAP 5-325MG 1 EACH TAB PO PRN (19:19)
[2024-12-28] MEDS ORDERED: MORPHINE SULFATE 4 MG/ML SYRINGE IV PRN (19:19)
[2024-12-28] MEDS: SODIUM CHLORIDE 0.9% 1,000 ML IV SCH (20:46)
[2024-12-28 21:41] LABS: Appearance,Urine Clear (Clear); Bilirubin,Urine Negative (Negative); Blood,Urine Negative (Negative); Color,Urine Colorless; Glucose,Urine (UA) Negative (Negative); Ketones,Urine Negative (Negative); Leukocyte Esterase,Urine Negative (Negative); Nitrite,Urine Negative (Negative); Protein,Urine Negative (Negative); Specific Gravity,Urine 1.012 (1.001-1.035); Urobilinogen,Urine <2.0 mg/dL (<2.0)
[2024-12-29] MEDS ORDERED: DEXTROSE 50% SYRINGE 50 ML IVP PRN ×2 (02:16)
[2024-12-29 05:51] LABS: Glucose,Whole Blood 106 mg/dL (70-110)
[2024-12-29] MEDS: INSULIN LISPRO (HumaLOG) 100 UNIT/ML 10 mL VL SQ SCH (06:02)
[2024-12-29 07:18] LABS: African American GFR (CKD) 63 (>60 ml/min/1.73 sqM); Anion Gap 9 mmol/L; Blood Urea Nitrogen 40 mg/dL (9-20); Calcium 10.4 mg/dL (8.4-10.2); Carbon Dioxide 24 mmol/L (22-30); Chloride 103 mmol/L (98-107); Glucose 87 mg/dL (74-99); INR 2.8 (<1.2); Non-African American GFR(CKD) 54 (>60 ml/min/1.73 sqM); Potassium 4.1 mmol/L (3.5-5.1); Prothrombin Time 27.8 sec (10.0-12.5); Sodium 136 mmol/L (137-145)
[2024-12-29] MEDS: METOPROLOL TARTRATE 50 MG TAB PO SCH (08:35)
[2024-12-29] MEDS: MAGNESIUM OXIDE 400 MG TAB PO SCH (08:36)
[2024-12-29] MEDS: metFORMIN 500 MG TAB PO SCH (08:36)
[2024-12-29] MEDS: POTASSIUM CHLORIDE ER 20 MEQ TAB.ER PO SCH (08:36)
[2024-12-29 11:52] LABS: Glucose,Whole Blood 84 mg/dL (70-110)
[2024-12-29] MEDS: PANTOPRAZOLE 40 MG TABLET PO SCH (12:27)
[2024-12-29] MEDS: MAGNESIUM SULFATE-D5W PMX 1 GM in DEXTROSE/WATER 1 100ML.BAG IVPB SCH (14:11)
[2024-12-29] MEDS ORDERED: Magnesium Replacement Protocol 1 EACH MISC MISCELLANE PRN (14:47)
[2024-12-29] MEDS: MAGNESIUM SULFATE-D5W PMX 1 GM in DEXTROSE/WATER 1 100ML.BAG IVPB ONE (15:03)
[2024-12-29 15:45] VITALS: BP 108/68; PULSE 55; RESP 17; TEMP 98.8
[2024-12-29 17:18] LABS: Glucose,Whole Blood 102 mg/dL (70-110)
[2024-12-29] MEDS ORDERED: WARFARIN 2.5 MG TAB PO SCH (20:00)
[2024-12-29] MEDS ORDERED: WARFARIN 10 MG TAB PO SCH (20:00)
[2024-12-29] MEDS ORDERED: ATORVASTATIN 10 MG TAB PO SCH (20:00)
--- NOTE | 2024-12-29 21:00 | P.HPIM ---
History of Present Illness H&P Date: 12/29/24 This is a very pleasant 69-year-old male who presented to the emergency department after receiving a telephone call from his primary care provider's office that his magnesium was critically low and to present to the ER for further evaluation. On admission labs reviewed and magnesium was 0.7, total bili 1.9, calcium 10.6, creatinine 1.71 with a BUN of 50, INR is 2.8, white count is normal at 8.09. Patient reports he has been having chronic issues with low magnesium and takes 400 mg 3 times daily. Patient was admitted with electrolyte abnormalities with replacement per protocol. Elderly appearing REVIEW OF SYSTEMS: CONSTITUTIONAL: No fever, no malaise, no fatigue. HEENT: No recent visual problems or hearing problems. Denied any sore throat. CARDIOVASCULAR: No chest pain, orthopnea, PND, no palpitations, no syncope. PULMONARY: No shortness of breath, no cough, no hemoptysis. GASTROINTESTINAL: No diarrhea, no nausea, no vomiting, no abdominal pain. NEUROLOGICAL: No headaches, no weakness, no numbness. HEMATOLOGICAL: Denies any bleeding or petechiae. GENITOURINARY: Denies any burning micturition, frequency, or urgency. MUSCULOSKELETAL/RHEUMATOLOGICAL: Denies any joint pain, swelling, or any muscle pain. ENDOCRINE: Denies any polyuria or polydipsia. The rest of the 14-point review of systems is negative. PHYSICAL EXAMINATION: GENERAL: The patient is alert and oriented x3, not in any acute distress. Well developed, elderly appearing, thin built HEENT: Pupils are round and equally reacting to light. EOMI. No scleral icterus. No conjunctival pallor. Normocephalic, atraumatic. No pharyngeal erythema. No thyromegaly. CARDIOVASCULAR: S1 and S2 muffled, A-fib on the monitor PULMONARY: Chest is clear to auscultation, no wheezing or crackles. ABDOMEN: Soft, nontender, nondistended, normoactive bowel sounds. No palpable organomegaly. MUSCULOSKELETAL: No joint swelling or deformity. EXTREMITIES: No cyanosis, clubbing, or pedal edema. NEUROLOGICAL: Gross neurological examination did not reveal any focal deficits. SKIN: No rashes. 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 GI prophylaxis DVT prophylaxis No code Plan: Patient was admitted with severe hypomagnesemia noted to be 0.7 and replacement this morning was 1.3 and will give 3 more grams and continue with 400 mg p.o. 3 times daily Blood pressure on the softer side and takes losartan along with triamterene/hydrochlorothiazide. Will decrease the dose to losartan 50 mg daily and instructed the patient if blood pressure is increasing may take additional dose and recommend holding triamterene/hydrochlorothiazide as this also can cause complications with electrolyte abnormalities Patient instructed to follow-up with [facility] in the outpatient setting along with primary care provider Patient will be replaced per protocol of magnesium with outpatient labs ordered and will be discharged later today. The impression and plan of care has been dictated by Ana Fraser, Nurse Practitioner as directed. Dr. Bradford MD I have performed a history and examination and MDM of this patient, discussed the same with the dictator, and agree with the dictator's assessment and plan as written ,documented as a scribe. Based on total visit time, I have performed more than 50% of the visit. 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 heart valve, "descending aortic 5-7mm flap" History of Any Multi-Drug Resistant Organisms: None Reported Past Surgical History: Tonsillectomy Past Psychological History: No Psychological Hx Reported Smoking Status: Never smoker Past Alcohol Use History: None Reported Past Drug Use History: Marijuana - Past Family History Mother Family Medical History: No Reported History Father Family Medical History: No Reported History Sister(s) Additional Family Medical History / Comment(s): " of brain aneurysm in her late 50s" Medications and Allergies Home Medications Medication Instructions Recorded Confirmed Type Atorvastatin [Lipitor] 10 mg PO HS@199912/14/24 12/28/24 History Calcium Carbonate 500 mg PO DAILY@0800 12/14/24 12/28/24 History Magnesium Oxide [Mag-Ox] 400 mg PO TID@0000,0800,1600 12/14/24 12/28/24 History Metoprolol Tartrate [Lopressor] 100 mg PO BID@0800,199912/14/24 12/28/24 History [place]-3/Dha/Epa/Fish Oil [Fish Oil 1 cap PO DAILY@159912/14/24 12/28/24 History 1,000 mg Softgel] Omeprazole [PriLOSEC] 20 mg PO DAILY@0800 12/14/24 12/28/24 History Potassium Chloride [Klor-Con M20] 20 meq PO DAILY@0812/14/24 12/28/24 History Warfarin [Coumadin] 12.5 mg PO HS@199912/14/24 12/28/24 History metFORMIN HCL [Glucophage] 500 mg PO DAILY@79912/14/24 12/28/24 History Acetaminophen Tab [Tylenol] 650 mg PO Q6HR PRN tab 12/29/24 Rx Losartan Potassium [Cozaar] 50 mg PO DAILY@0800 #0 12/29/24 12/28/24 Rx Allergies Allergy/AdvReac Type Severity Reaction Status Date / Time Iodinated Contrast Media Allergy Anaphylaxis Verified 12/28/24 19:47 Physical Exam Vitals: Vital Signs Temp Pulse Pulse Resp BP BP Pulse Ox 12/29/24 07:00 98.3 F 75 14 119/68 99 12/29/24 00:58 97.5 F L 75 20 113/61 98 12/28/24 23:39 73 18 98/54 97 12/28/24 21:35 70 16 114/63 96 12/28/24 19:41 86 18 100/67 96 12/28/24 17:49 97.7 F 81 18 93/58 98 Intake and Output 12/28/24 12/29/24 12/29/24 22:59 06:59 14:59 Output Total 150 Balance -150 Output: Urine 150 Other: Voiding Method Toilet Toilet # Voids 1 Weight 96.615 kg 96.615 kg Results CBC & Chem 7: 12/28/24 18:27 12/29/24 06:35 Labs: Abnormal Lab Results - Last 24 Hours (Table) 12/28/24 12/28/24 12/28/24 Range/Units 18:27 18:27 18:27 RBC 3.97 L (4.40-5.60) 10*6/uL Hgb 11.3 L (13.0-17.0) g/dL Hct 34.6 L (39.6-50.0) % Immature Gran # 0.07 H (0.00-0.04) 10*3/uL PT 28.0 H (10.0-12.5) sec INR 2.8 H (<1.2) Sodium (137-145) mmol/L Carbon Dioxide 20 L (22-30) mmol/L BUN 50 H (9-20) mg/dL Creatinine 1.71 H (0.66-1.25) mg/dL Calcium 10.6 H (8.4-10.2) mg/dL Magnesium 0.7 L* (1.6-2.3) mg/dL Total Bilirubin 1.9 H (0.2-1.3) mg/dL 12/29/24 12/29/24 Range/Units 06:35 06:35 RBC (4.40-5.60) 10*6/uL Hgb (13.0-17.0) g/dL Hct (39.6-50.0) % Immature Gran # (0.00-0.04) 10*3/uL PT 27.8 H (10.0-12.5) sec INR 2.8 H (<1.2) Sodium 136 L (137-145) mmol/L Carbon Dioxide (22-30) mmol/L BUN 40 H (9-20) mg/dL Creatinine 1.34 H (0.66-1.25) mg/dL Calcium 10.4 H (8.4-10.2) mg/dL Magnesium (1.6-2.3) mg/dL Total Bilirubin (0.2-1.3) mg/dL Thrombosis Risk Factor Assmnt - Choose All That Apply Each Factor Represents 1 point: Obesity (BMI >25) Each Risk Factor Represents 2 Points: Age 61-74 years Thrombosis Risk Factor Assessment Total Risk Factor Score: 3 Thrombosis Risk Factor Assessment Level: Moderate Risk
--- NOTE | 2024-12-29 21:02 | P.DS ---
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 Patient will follow-up with Dr. Pierce in the outpatient setting upon discharge. Patient is to continue with continue with magnesium 3 times daily and outpatient labs as scheduled. Total time taken is greater than 35 minutes. Hospital course This is a very pleasant 69-year-old male who presented to the emergency department after receiving a telephone call from his primary care provider's office that his magnesium was critically low and to present to the ER for further evaluation. On admission labs reviewed and magnesium was 0.7, total bili 1.9, calcium 10.6, creatinine 1.71 with a BUN of 50, INR is 2.8, white count is normal at 8.09. Patient reports he has been having chronic issues with low magnesium and takes 400 mg 3 times daily. Patient was admitted with electrolyte abnormalities with replacement per protocol. Elderly appearing PHYSICAL EXAMINATION: GENERAL: The patient is alert and oriented x3, not in any acute distress. Well developed, elderly appearing, thin built HEENT: Pupils are round and equally reacting to light. EOMI. No scleral icterus. No conjunctival pallor. Normocephalic, atraumatic. No pharyngeal erythema. No thyromegaly. CARDIOVASCULAR: S1 and S2 muffled, A-fib on the monitor PULMONARY: Chest is clear to auscultation, no wheezing or crackles. ABDOMEN: Soft, nontender, nondistended, normoactive bowel sounds. No palpable organomegaly. MUSCULOSKELETAL: No joint swelling or deformity. EXTREMITIES: No cyanosis, clubbing, or pedal edema. NEUROLOGICAL: Gross neurological examination did not reveal any focal deficits. SKIN: No rashes. Please refer to medication reconciliation sheet for a list of medications. The impression and plan of care has been dictated by Ana Fraser, Nurse Practitioner as directed. Dr. Bradford MD I have performed a history and examination and MDM of this patient, discussed the same with the dictator, and agree with the dictator's assessment and plan as written ,documented as a scribe. Based on total visit time, I have performed more than 50% of the visit. Patient Condition at Discharge: Fair Plan - Discharge Summary Discharge Rx Participant: Yes New Discharge Prescriptions: New Acetaminophen Tab [Tylenol] 650 mg PO Q6HR PRN tab PRN Reason: Mild Pain Or Fever > 100.5 Continue [place]-3/Dha/Epa/Fish Oil [Fish Oil 1,000 mg Softgel] 1 cap PO DAILY@1600 Calcium Carbonate 500 mg PO DAILY@0800 Omeprazole [PriLOSEC] 20 mg PO DAILY@0800 Potassium Chloride [Klor-Con M20] 20 meq PO DAILY@0800 Metoprolol Tartrate [Lopressor] 100 mg PO BID@08,1999 metFORMIN HCL [Glucophage] 500 mg PO DAILY@0800 Magnesium Oxide [Mag-Ox] 400 mg PO TID@0000,0800,1600 Warfarin [Coumadin] 12.5 mg PO HS@1999 Atorvastatin [Lipitor] 10 mg PO HS@1999 Changed Losartan Potassium [Cozaar] 50 mg PO DAILY@0800 #0 Discontinued Triamterene/Hydrochlorothiazid [Triamterene-Hctz 37.5-25 mg Tb] 1 tab PO DAILY@0800 Discharge Medication List Atorvastatin [Lipitor] 10 mg PO HS@199912/14/24 [History] Calcium Carbonate 500 mg PO DAILY@0800 12/14/24 [History] Magnesium Oxide [Mag-Ox] 400 mg PO TID@0000,0800,1600 12/14/24 [History] Metoprolol Tartrate [Lopressor] 100 mg PO BID@0800,199912/14/24 [History] [place]-3/Dha/Epa/Fish Oil [Fish Oil 1,000 mg Softgel] 1 cap PO DAILY@1600 12/14/24 [History] Omeprazole [PriLOSEC] 20 mg PO DAILY@0800 12/14/24 [History] Potassium Chloride [Klor-Con M20] 20 meq PO DAILY@0800 12/14/24 [History] Warfarin [Coumadin] 12.5 mg PO HS@199912/14/24 [History] metFORMIN HCL [Glucophage] 500 mg PO DAILY@0800 12/14/24 [History] Acetaminophen Tab [Tylenol] 650 mg PO Q6HR PRN tab 12/29/24 [Rx] Losartan Potassium [Cozaar] 50 mg PO DAILY@0800 #0 12/29/24 [Rx] Follow up Appointment(s)/Referral(s): Sunny Pierce DO [Primary Care Provider] - 1-2 days Patient Instructions/Handouts: Hypomagnesemia (GEN) Activity/Diet/Wound Care/Special Instructions: Activity limited until follow-up Follow-up with primary care provider [facility] Continue taking magnesium oxide 3 times daily Continue taking losartan 50 mg daily and if blood pressure is increasing may increase to your normal dose of 100 mg daily Continue holding triamterene/hydrochlorothiazide for now Discharge Disposition: HOME SELF-CARE
--- NOTE | 2024-12-30 17:48 | P.NPCON ---
History of Present Illness - History of Present Illness Patient is a 69-year-old male admitted to the hospital due to abnormal outpat ient labs. Patient was advised to go to ER as magnesium was 0.7 on outpatient labs. Patient denied any history of cramps. He is maintained on proton pump inhibitors for many years now. Patient admits to taking 1200 mg of magnesium oxide daily. Denies any history of diarrhea but does have occasional loose bowel movements. Patient reports good oral intake. Serum magnesium increased to 1.5 today. 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 heart valve, "descending aortic 5-7mm flap" History of Any Multi-Drug Resistant Organisms: None Reported Past Surgical History: Tonsillectomy Past Psychological History: No Psychological Hx Reported Smoking Status: Never smoker Past Alcohol Use History: None Reported Past Drug Use History: Marijuana - Past Family History Mother Family Medical History: No Reported History Father Family Medical History: No Reported History Sister(s) Additional Family Medical History / Comment(s): " of brain aneurysm in her late 50s" Medications and Allergies Home Medications Medication Instructions Recorded Confirmed Type Atorvastatin [Lipitor] 10 mg PO HS@199912/14/24 12/28/24 History Calcium Carbonate 500 mg PO DAILY@79912/14/24 12/28/24 History Magnesium Oxide [Mag-Ox] 400 mg PO TID@0000,0800,159912/14/24 12/28/24 History Metoprolol Tartrate [Lopressor] 100 mg PO BID@799,199912/14/24 12/28/24 History [place]-3/Dha/Epa/Fish Oil [Fish Oil 1 cap PO DAILY@159912/14/24 12/28/24 History 1,000 mg Softgel] Omeprazole [PriLOSEC] 20 mg PO DAILY@79912/14/24 12/28/24 History Potassium Chloride [Klor-Con M20] 20 meq PO DAILY@79912/14/24 12/28/24 History Warfarin [Coumadin] 12.5 mg PO HS@199912/14/24 12/28/24 History metFORMIN HCL [Glucophage] 500 mg PO DAILY@79912/14/24 12/28/24 History Acetaminophen Tab [Tylenol] 650 mg PO Q6HR PRN tab 12/29/24 Rx Losartan Potassium [Cozaar] 50 mg PO DAILY@0800 #0 12/29/24 12/28/24 Rx Allergies Allergy/AdvReac Type Severity Reaction Status Date / Time Iodinated Contrast Media Allergy Anaphylaxis Verified 12/28/24 19:47 Physical Exam Patient is awake, comfortable, no acute distress Examination of the heart S1 and S2 Examination of the lungs bilateral breath sounds are heard Abdomen is soft nontender Examination of lower extremity shows no evidence of edema PLC ENGINEER exam grossly intact. Results - Lab Results Most recent lab results Calcium 10.4 mg/dL (8.4-10.2) H 12/29/24 06:35 Phosphorus 3.7 mg/dL (2.5-4.5) 12/28/24 18:27 Magnesium 1.3 mg/dL (1.6-2.3) L 12/29/24 11:42 12/28/24 18:27 12/29/24 06:35 Assessment and Plan Assessment: 1. Hypomagnesemia associated with proton pump inhibitors. Not maintained on diuretics. Status post replacement, repeat magnesium was 1.5 today. 2. Gastroesophageal reflux disease maintained on proton pump inhibitors 3. Hypertension maintained on Cozaar and metoprolol 4. Type 2 diabetes maintained on metformin Plan: Continue aggressive replacement Patient is advised to consider switching to Pepcid for gastroesophageal reflux disease. Continue with home dose of magnesium oxide, can increase to 1600 mg daily. Patient will need repeat labs as outpatient in 1 to 2 days.
== END 2024-12-29 17:40 | disposition home or self-care (01) ==
LOC: EC 17:42 → 6NMEDSUR 19:20
PROVIDERS: ADMIT Hospitalist; ATTEND Hospitalist
DX: E83.42 Hypomagnesemia (principal); N17.9 Acute kidney failure, unspecified; E11.9 Type 2 diabetes mellitus without complications; I10 Essential (primary) hypertension; E78.5 Hyperlipidemia, unspecified; I48.91 Unspecified atrial fibrillation; K21.9 Gastro-esophageal reflux disease without esophagitis; Z86.73 Personal history of transient ischemic attack (TIA), and cerebral infarction without residual deficits; Z79.01 Long term (current) use of anticoagulants; Z79.84 Long term (current) use of oral hypoglycemic drugs; Z79.899 Other long term (current) drug therapy
CPT/HCPCS: 96366 ×3; 96365; 99284; 36415; 93005; 80053; 80048; 83735 ×2; 84100; 85025; 85610 ×2; 85730; 81003; G0378 ×2; J3475 ×2

== ENCOUNTER 2025-01-03 22:03 | Inpatient (IN) | payer MEDICARE ==
--- NOTE | 2025-01-03 22:37 | ED ---
Recheck HPI - General Chief Complaint: Recheck/Abnormal Lab/Rx Stated Complaint: Abnormal labs Time Seen by Provider: 01/03/25 22:33 Source: patient, RN notes reviewed, old records reviewed Mode of arrival: ambulatory Limitations: no limitations - History of Present Illness Initial Comments: This is a 69-year-old male to the ER for evaluation of low magnesium levels. Patient presents today for evaluation of low magnesium with history of low magnesium which they believe may be related to Protonix. Patient does take oral supplementation which has not been helping, patient had outpatient lab testing done showing low magnesium MD Complaint: abnormal lab (Magnesium) -: month(s) Returns Today for: Called Because of Abnormal Lab/Test Symptoms Since Prior Visit: no new symptoms Context: planned re-check Associated Symptoms: none Treatments Prior to Arrival: other - Related Data Home Medications Medication Instructions Recorded Confirmed Atorvastatin [Lipitor] 10 mg PO HS@199912/14/24 12/28/24 Calcium Carbonate 500 mg PO DAILY@79912/14/24 12/28/24 Magnesium Oxide [Mag-Ox] 400 mg PO TID@0000,0800,159912/14/24 12/28/24 Metoprolol Tartrate [Lopressor] 100 mg PO BID@08,199912/14/24 12/28/24 [place]-3/Dha/Epa/Fish Oil [Fish Oil 1 cap PO DAILY@159912/14/24 12/28/24 1,000 mg Softgel] Omeprazole [PriLOSEC] 20 mg PO DAILY@79912/14/24 12/28/24 Potassium Chloride [Klor-Con M20] 20 meq PO DAILY@79912/14/24 12/28/24 Warfarin [Coumadin] 12.5 mg PO HS@199912/14/24 12/28/24 metFORMIN HCL [Glucophage] 500 mg PO DAILY@79912/14/24 12/28/24 Previous Rx's Medication Instructions Recorded Acetaminophen Tab [Tylenol] 650 mg PO Q6HR PRN tab 12/29/24 Losartan Potassium [Cozaar] 50 mg PO DAILY@0800 #0 12/29/24 Allergies Allergy/AdvReac Type Severity Reaction Status Date / Time Iodinated Contrast Media Allergy Anaphylaxis Verified 01/03/25 22:17 Review of Systems ROS Statement: Those systems with pertinent positive or pertinent negative responses have been documented in the HPI. ROS Other: All systems not noted in ROS Statement are negative. 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 heart valve, "descending aortic 5-7mm flap" History of Any Multi-Drug Resistant Organisms: None Reported Past Surgical History: Tonsillectomy Past Psychological History: No Psychological Hx Reported Smoking Status: Never smoker Past Alcohol Use History: None Reported Past Drug Use History: Marijuana - Past Family History Mother Family Medical History: No Reported History Father Family Medical History: No Reported History Sister(s) Additional Family Medical History / Comment(s): " of brain aneurysm in her late 50s" General Exam Limitations: no limitations General appearance: alert, in no apparent distress Head exam: Present: atraumatic, normocephalic, normal inspection Eye exam: Present: normal appearance, PERRL, EOMI. Absent: scleral icterus, conjunctival injection, periorbital swelling ENT exam: Present: normal exam, mucous membranes moist Neck exam: Present: normal inspection. Absent: tenderness, meningismus, lymphadenopathy Respiratory exam: Present: normal lung sounds bilaterally. Absent: respiratory distress, wheezes, rales, rhonchi, stridor Cardiovascular Exam: Present: regular rate, normal rhythm, normal heart sounds. Absent: systolic murmur, diastolic murmur, rubs, gallop, clicks GI/Abdominal exam: Present: soft, normal bowel sounds. Absent: distended, tenderness, guarding, rebound, rigid Extremities exam: Present: normal inspection, full ROM, normal capillary refill. Absent: tenderness, pedal edema, joint swelling, calf tenderness Back exam: Present: normal inspection Neurological exam: Present: alert, oriented X3, CN II-XII intact Psychiatric exam: Present: normal affect, normal mood Skin exam: Present: warm, dry, intact, normal color. Absent: rash Course Vital Signs 01/03/25 22:11 Temperature 97.9 F Pulse Rate 81 Respiratory 18 Rate Blood Pressure 118/52 O2 Sat by Pulse 98 Oximetry - Reevaluation(s) Reevaluation #1: 01/03/25 23:55 Medical records reviewed Reevaluation #2: 01/03/25 23:55 Patient symptoms unchanged Reevaluation #3: 01/03/25 23:55 Patient informed of results and questions answered Reevaluation #4: Was pt. sent in by a medical professional or institution ([facility], RESOURCE ENGINEER, urgent care, hospital, or senior living...) When possible be specific @ -no Did you speak to anyone other than the patient for history (EMS, parent, family, police, friend...)? What history was obtained from this source @ -no Did you review nursing and triage notes (agree or disagree)? Why? @ -agree Are old charts reviewed (outside hosp., previous admission, EMS record, old EKG, old radiological studies, urgent care reports/EKG's, senior living records)? Report findings @ -yes Differential Diagnosis (chest pain, altered mental status, abdominal pain women, abdominal pain men, vaginal bleeding, weakness, fever, dyspnea, syncope, headache, dizziness, GI bleed, back pain, seizure, CVA, palpatations, mental health, musculoskeletal)? @ -prior EKG interpreted by me (3pts min.). @ -yes X-rays interpreted by me (1pt min.). @ -yes negative for acute disease CT interpreted by me (1pt min.). @ -no U/S interpreted by me (1pt. min.). @ -no What testing was considered but not performed or refused? (CT, X-rays, U/S, labs)? Why? @ -none What meds were considered but not given or refused? Why? @ -none Did you discuss the management of the patient with other professionals (professionals i.e. , [facility], RESOURCE ENGINEER, lab, RT, psych nurse, director social welfare, admiralty lawyer, teacher, foreign policy officer, family service caseworker)? Give summary @ -no Was smoking cessation discussed for >3mins.? @ -no Was critical care preformed (if so, how long)? @ -no Were there social determinants of health that impacted care today? How? (Homelessness, low income, unemployed, alcoholism, drug addiction, t ransportation, low edu. Level, literacy, decrease access to med. care, senior living, rehab)? @ -none Was there de-escalation of care discussed even if they declined (Discuss DNR or withdrawal of care, Hospice)? DNR status @ -no What co-morbidities impacted this encounter? (DM, HTN, Smoking, COPD, CAD, Can cer, CVA, ARF, Chemo, Hep., AIDS, mental health diagnosis, sleep apnea, morbid obesity)? @ -none Was patient admitted / discharged? Hospital course, mention meds given and route, prescriptions, significant lab abnormalities, going to OR and other pertinent info. @ - Undiagnosed new problem with uncertain prognosis? @ -no Drug Therapy requiring intensive monitoring for toxicity (Heparin, Nitro, Insulin, Cardizem)? @ -no Were any procedures done? @ -no Diagnosis/symptom? @ - Acute, or Chronic, or Acute on Chronic? @ -Acute Uncomplicated (without systemic symptoms) or Complicated (systemic symptoms)? @ -Complicated Side effects of treatment? @ -no Exacerbation, Progression, or Severe Exacerbation? @ -exacerbation Poses a threat to life or bodily function? How? (Chest pain, [place], [place], pneumonia, PE, COPD, DKA, ARF, appy, cholecystitis, CVA, Diverticulitis, Homicidal, Suicidal, threat to staff... and all critical care pts) @ -yes Medical Decision Making - Medical Decision Making 69 male to the ER for evaluation will admit for severely low magnesium levels. Patient started on magnesium replacement - Lab Data Result diagrams: 01/03/25 22:47 01/03/25 22:47 Lab Results 01/03/25 01/03/25 Range/Units 22:47 22:47 WBC 7.19 (4.50-10.00) 10*3/uL RBC 3.48 L (4.40-5.60) 10*6/uL Hgb 10.2 L (13.0-17.0) g/dL Hct 31.2 L (39.6-50.0) % MCV 89.7 (80.0-97.0) fL MCH 29.3 (27.0-32.0) pg MCHC 32.7 (32.0-37.0) g/dL Plt Count 201 (140-440) 10*3/uL MPV 10.1 (9.5-12.2) fL Immature Gran % (Auto) 0.4 % Neutrophils % 54.1 % Lymphocytes % 28.7 % Monocytes % 12.5 % Eosinophils % 3.2 % Basophils % 1.1 % Immature Gran # 0.03 (0.00-0.04) 10*3/uL Neutrophils # 3.89 (1.80-7.70) 10*3/uL Lymphocytes # 2.06 (0.90-5.00) 10*3/uL Monocytes # 0.90 (0.20-1.00) 10*3/uL Eosinophils # 0.23 (0.04-0.35) 10*3/uL Basophils # 0.08 (0.00-0.10) 10*3/uL Sodium 137 (137-145) mmol/L Potassium 3.9 (3.5-5.1) mmol/L Chloride 102 (98-107) mmol/L Carbon Dioxide 26 (22-30) mmol/L Anion Gap 9 mmol/L BUN 26 H (9-20) mg/dL Creatinine 1.06 (0.66-1.25) mg/dL Est GFR (CKD-EPI)AfAm 84 (>60 ml/min/1.73 sqM) Est GFR (CKD-EPI)NonAf 72 (>60 ml/min/1.73 sqM) Glucose 75 (74-99) mg/dL Calcium 9.7 (8.4-10.2) mg/dL Phosphorus 3.7 (2.5-4.5) mg/dL Magnesium 0.5 L* (1.6-2.3) mg/dL Total Bilirubin 1.4 H (0.2-1.3) mg/dL AST 35 (17-59) U/L ALT 19 (4-49) U/L Alkaline Phosphatase 56 (38-126) U/L Total Protein 6.9 (6.3-8.2) g/dL Albumin 4.2 (3.5-5.0) g/dL - EKG Data -: EKG Interpreted by Me Disposition Clinical Impression: Hypomagnesemia, Weakness Disposition: ADMITTED IP TO THIS HOSP Condition: Fair Is patient prescribed a controlled substance at d/c from ED?: No Referrals: Sunny Pierce DO [Primary Care Provider] - 1-2 days Time of Disposition: 23:55
[2025-01-03 22:52] LABS: Basophils # (A) 0.08 10*3/uL (0.00-0.10); Basophils % (A) 1.1 %; Eosinophils # (A) 0.23 10*3/uL (0.04-0.35); Eosinophils % (A) 3.2 %; HCT 31.2 % (39.6-50.0); HGB 10.2 g/dL (13.0-17.0); Lymphocytes # (A) 2.06 10*3/uL (0.90-5.00); Lymphocytes % (A) 28.7 %; MCH 29.3 pg (27.0-32.0); MCHC 32.7 g/dL (32.0-37.0); MCV 89.7 fL (80.0-97.0); Mean Platelet Volume 10.1 fL (9.5-12.2); Monocytes % (A) 12.5 %; Neutrophils # (A) 3.89 10*3/uL (1.80-7.70); Neutrophils % (A) 54.1 %; Platelet Count 201 10*3/uL (140-440); RBC 3.48 10*6/uL (4.40-5.60); RDW 19.4 % (11.5-14.5); WBC 7.19 10*3/uL (4.50-10.00)
[2025-01-03 23:10] LABS: ALT 19 U/L (4-49); AST 35 U/L (17-59); African American GFR (CKD) 84 (>60 ml/min/1.73 sqM); Albumin 4.2 g/dL (3.5-5.0); Alkaline Phosphatase 56 U/L (38-126); Anion Gap 9 mmol/L; Blood Urea Nitrogen 26 mg/dL (9-20); Calcium 9.7 mg/dL (8.4-10.2); Carbon Dioxide 26 mmol/L (22-30); Chloride 102 mmol/L (98-107); Glucose 75 mg/dL (74-99); Non-African American GFR(CKD) 72 (>60 ml/min/1.73 sqM); Phosphorus 3.7 mg/dL (2.5-4.5); Potassium 3.9 mmol/L (3.5-5.1); Sodium 137 mmol/L (137-145); Total Bilirubin 1.4 mg/dL (0.2-1.3); Total Protein 6.9 g/dL (6.3-8.2)
[2025-01-03 23:32] LABS: Magnesium 0.5 mg/dL (1.6-2.3)
[2025-01-03] MEDS ORDERED: Magnesium Replacement Protocol 1 EACH MISC MISCELLANE PRN (23:51)
[2025-01-03] MEDS ORDERED: MORPHINE SULFATE 4 MG/ML SYRINGE IV PRN (23:52)
[2025-01-03] MEDS ORDERED: ONDANSETRON 4 MG/2 ML VIAL IVP PRN (23:52)
[2025-01-03] MEDS ORDERED: NALOXONE 0.4 MG/ML 1 ML VIAL IV PRN (23:52)
[2025-01-03] MEDS: MAGNESIUM OXIDE 400 MG TAB PO STA (23:59)
[2025-01-04] MEDS: MAGNESIUM OXIDE 400 MG TAB PO STA
[2025-01-04] MEDS: SODIUM CHLORIDE 0.9% 1,000 ML IV SCH
[2025-01-04] MEDS: MAGNESIUM SULFATE-D5W PMX 1 GM in DEXTROSE/WATER 1 100ML.BAG IVPB SCH (00:26)
[2025-01-04] MEDS ORDERED: DEXTROSE 50% SYRINGE 50 ML IVP PRN ×2 (01:10)
--- NOTE | 2025-01-04 02:04 | P.HPIM ---
History of Present Illness H&P Date: 01/04/25 Patient is a 69-year-old male history of persistent hypomagnesemia, hypertension, type 2 diabetes, mechanical heart valve on Coumadin, history of CVA/TIA, history of aortic dissection, repaired presenting for persistent hypomagnesemia. Patient was recently admitted to our facility with similar complaints. Was seen by nephrology, attributed hypomagnesemia to PPI use. Patient claims that he went for laboratory checkup, was asked by his PCP to come back to the hospital for persistent hypomagnesemia. He denies any chest pain, shortness of breath, palpitations, abdominal pain, nausea, vomiting, urinary or bowel complaints. He is on PPI for for GI prophylaxis in the setting of warfar in use. He was still taking his PPI as of yesterday. In the ED, temperature was 97.9, pulse 81, respiratory rate 18, blood pressure 118/52, saturating at 98% on room air. Hemoglobin 10.2, around baseline, potassium 3.9, creatinine 1.06, magnesium 0.5, total bili 1.4. No imaging. Patient given 4 g of IV magnesium sulfate in the ED, as well as 800 mg of p.o. magnesium oxide. Patient admitted for persistent hypomagnesemia, nephrology also consulted. Pertinent positives and negatives as discussed in HPI, a complete review of systems was performed and all other systems are negative. Patient seen and examined at bedside. Vital signs reviewed General: nontoxic, no distress, appears at stated age Derm: warm, dry Head: atraumatic, normocephalic, symmetric Eyes: EOMI, no lid lag, anicteric sclera, pupils equal round reactive to light ENT: Nose and ears atraumatic Neck: No thyromegaly, supple Mouth: no lip lesion, mucus membranes moist Cardiovascular: S1S2 reg, systolic murmur with mechanical click, no edema Lungs: clear to auscultation bilateral, no rhonchi, no rales, no wheeze, no accessory muscle use Abdominal: soft, nontender to palpation, no guarding, no appreciable organomeg rufino Ext: no gross muscle atrophy, muscle strength muscle strength 5 out of 5 in all 4 extremities, no contractures Neuro: CN II-XII grossly intact Psych: Alert, oriented, appropriate affect Assessment/Plan: Active: Persistent hypomagnesemia, likely in the setting of PPI use - Discontinue PPI, start Pepcid - Repeat magnesium levels - Patient received 4 g of IV magnesium, oral 800 mg magnesium oxide in the ED - Continue magnesium oxide 400 mg 3 times daily - Telemetry monitoring - Nephrology consulted, pending recommendations Mechanical heart valve on Coumadin - Pharmacy to dose Coumadin, goal INR 2.5-2.5 - INR ordered Type 2 diabetes - On sliding scale insulin, monitor for hypoglycemia - Hold metformin Chronic: Dyslipidemia Hypertension History of CVA/TIA History of aortic dissection The patient is admitted with an anticipated greater than 2 midnight stay as inpatient status for evaluation of persistent hypomagnesemia. Surrogate decision-maker: Daughter CODE STATUS: Full code DVT prophylaxis: Coumadin Anticipated discharge date: Pending clinical course Anticipated discharge place: Pending clinical course A total of 58 minutes was spent on the care of this complex patient more than 50% of the time was spent in counseling and care coordination. 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 heart valve, "descending aortic 5-7mm flap" History of Any Multi-Drug Resistant Organisms: None Reported Past Surgical History: Tonsillectomy Past Psychological History: No Psychological Hx Reported Smoking Status: Never smoker Past Alcohol Use History: None Reported Past Drug Use History: Marijuana - Past Family History Mother Family Medical History: No Reported History Father Family Medical History: No Reported History Sister(s) Additional Family Medical History / Comment(s): " of brain aneurysm in her late 50s" Medications and Allergies Home Medications Medication Instructions Recorded Confirmed Type Atorvastatin [Lipitor] 10 mg PO HS@199912/14/24 12/28/24 History Calcium Carbonate 500 mg PO DAILY@0812/14/24 12/28/24 History Magnesium Oxide [Mag-Ox] 400 mg PO TID@0000,08,159912/14/24 12/28/24 History Metoprolol Tartrate [Lopressor] 100 mg PO BID@799,199912/14/24 12/28/24 History [place]-3/Dha/Epa/Fish Oil [Fish Oil 1 cap PO DAILY@159912/14/24 12/28/24 History 1,000 mg Softgel] Omeprazole [PriLOSEC] 20 mg PO DAILY@0800 12/14/24 12/28/24 History Potassium Chloride [Klor-Con M20] 20 meq PO DAILY@79912/14/24 12/28/24 History Warfarin [Coumadin] 12.5 mg PO HS@199912/14/24 12/28/24 History metFORMIN HCL [Glucophage] 500 mg PO DAILY@0800 12/14/24 12/28/24 History Acetaminophen Tab [Tylenol] 650 mg PO Q6HR PRN tab 12/29/24 Rx Losartan Potassium [Cozaar] 50 mg PO DAILY@0800 #0 12/29/24 12/28/24 Rx Allergies Allergy/AdvReac Type Severity Reaction Status Date / Time Iodinated Contrast Media Allergy Anaphylaxis Verified 01/03/25 22:17 Physical Exam Vitals: Vital Signs Temp Pulse Resp BP Pulse Ox 01/04/25 00:21 88 16 109/65 95 01/03/25 22:11 97.9 F 81 18 118/52 98 Intake and Output 01/03/25 01/03/25 01/04/25 14:59 22:59 06:59 Other: Weight 96.615 kg Results CBC & Chem 7: 01/03/25 22:47 01/03/25 22:47 Labs: Abnormal Lab Results - Last 24 Hours (Table) 01/03/25 01/03/25 Range/Units 22:47 22:47 RBC 3.48 L (4.40-5.60) 10*6/uL Hgb 10.2 L (13.0-17.0) g/dL Hct 31.2 L (39.6-50.0) % BUN 26 H (9-20) mg/dL Magnesium 0.5 L* (1.6-2.3) mg/dL Total Bilirubin 1.4 H (0.2-1.3) mg/dL
[2025-01-04 02:08] LABS: INR 2.7 (<1.2); Prothrombin Time 27.3 sec (10.0-12.5)
[2025-01-04 04:55] LABS: Basophils # (A) 0.06 10*3/uL (0.00-0.10); Eosinophils # (A) 0.24 10*3/uL (0.04-0.35); Eosinophils % (A) 4.1 %; HCT 30.9 % (39.6-50.0); HGB 9.8 g/dL (13.0-17.0); Lymphocytes # (A) 1.89 10*3/uL (0.90-5.00); Lymphocytes % (A) 32.3 %; MCH 28.5 pg (27.0-32.0); MCHC 31.7 g/dL (32.0-37.0); MCV 89.8 fL (80.0-97.0); Mean Platelet Volume 10.2 fL (9.5-12.2); Monocytes # (A) 0.71 10*3/uL (0.20-1.00); Monocytes % (A) 12.1 %; Neutrophils # (A) 2.93 10*3/uL (1.80-7.70); Neutrophils % (A) 50.2 %; Platelet Count 188 10*3/uL (140-440); RBC 3.44 10*6/uL (4.40-5.60); RDW 19.5 % (11.5-14.5); WBC 5.85 10*3/uL (4.50-10.00)
[2025-01-04 05:14] LABS: ALT 19 U/L (4-49); AST 33 U/L (17-59); African American GFR (CKD) 86 (>60 ml/min/1.73 sqM); Albumin 3.9 g/dL (3.5-5.0); Alkaline Phosphatase 60 U/L (38-126); Anion Gap 9 mmol/L; Blood Urea Nitrogen 23 mg/dL (9-20); Calcium 9.9 mg/dL (8.4-10.2); Carbon Dioxide 28 mmol/L (22-30); Chloride 99 mmol/L (98-107); Glucose 93 mg/dL (74-99); Magnesium 1.7 mg/dL (1.6-2.3); Non-African American GFR(CKD) 75 (>60 ml/min/1.73 sqM); Phosphorus 3.2 mg/dL (2.5-4.5); Potassium 3.6 mmol/L (3.5-5.1); Sodium 136 mmol/L (137-145); Total Bilirubin 1.2 mg/dL (0.2-1.3); Total Protein 6.4 g/dL (6.3-8.2)
[2025-01-04 07:07] LABS: Glucose,Whole Blood 102 mg/dL (70-110)
[2025-01-04 07:20] VITALS: BP 113/67; PULSE 76; RESP 17; TEMP 98.5
[2025-01-04] MEDS: INSULIN LISPRO (HumaLOG) 100 UNIT/ML 10 mL VL SQ SCH (09:26)
[2025-01-04] MEDS: METOPROLOL TARTRATE 50 MG TAB PO SCH (09:26)
[2025-01-04] MEDS: MAGNESIUM OXIDE 400 MG TAB PO SCH (09:26)
[2025-01-04] MEDS: FAMOTIDINE 20 MG TAB PO SCH (09:27)
--- NOTE | 2025-01-04 10:43 | P.NPCON ---
History of Present Illness - Reason for Consult acute renal failure - History of Present Illness Reason for consultation: Hypomagnesemia History of present illness: Patient is a 69-year-old male seen in renal consultation for hypomagnesemia. Patient's magnesium level on admission was 0.5 which was replaced and is improved to 1.7 as of this morning. Patient states he had blood work done outpatient and was advised to go to the hospital due to the low magnesium level. Otherwise patient has no active complaints. He denies history of heavy alcohol use. Patient states he quit alcohol over 20 years ago. Patient states he has been having loose bowel movements intermittently but denies any atul diarrhea. Patient states he was taking triamterene and hydrochlorothiazide which was stopped about 4 to 5 days ago during his last hospitalization. He does take proton pump inhibitor. He denies any history of bowel surgery. He denies any family history of electrolyte imbalance. Rest of the electrolytes have been normal. GFR is at baseline. Oral intake has been fair. Denies vomiting. Vital signs are stable. General: No acute distress. HEENT: Head exam is unremarkable. LUNGS: No audible rhonchi or wheezes. HEART: Rate and Rhythm are regular. ABDOMEN: Nontender. EXTREMITITES: No edema. 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 heart valve, "descending aortic 5-7mm flap" History of Any Multi-Drug Resistant Organisms: None Reported Past Surgical History: Cardiac Valve Replacement, Tonsillectomy Additional Past Surgical History / Comment(s): 2001 mechanical heart valve Past Anesthesia/Blood Transfusion Reactions: No Reported Reaction Past Psychological History: No Psychological Hx Reported Smoking Status: Never smoker Past Alcohol Use History: None Reported Past Drug Use History: Marijuana Additional Drug Use History / Comment(s): occasional marijuana use - Past Family History Mother Family Medical History: No Reported History Father Family Medical History: No Reported History Sister(s) Additional Family Medical History / Comment(s): " of brain aneurysm in her late 50s" Medications and Allergies Home Medications Medication Instructions Recorded Confirmed Type Atorvastatin [Lipitor] 10 mg PO HS@199912/14/24 01/04/25 History Calcium Carbonate 500 mg PO DAILY@0812/14/24 01/04/25 History Magnesium Oxide [Mag-Ox] 400 mg PO TID@0000,0800,1600 12/14/24 01/04/25 History Metoprolol Tartrate [Lopressor] 100 mg PO BID@08,199912/14/24 01/04/25 History Omeprazole [PriLOSEC] 20 mg PO DAILY@0800 12/14/24 01/04/25 History Potassium Chloride [Klor-Con M20] 20 meq PO DAILY@79912/14/24 01/04/25 History Warfarin [Coumadin] 12.5 mg PO HS@199912/14/24 01/04/25 History metFORMIN HCL [Glucophage] 500 mg PO DAILY@79912/14/24 01/04/25 History Acetaminophen Tab [Tylenol] 650 mg PO Q6HR PRN tab 12/29/24 01/04/25 Rx Losartan Potassium [Cozaar] 50 mg PO DAILY@0800 #0 12/29/24 01/04/25 Rx Allergies Allergy/AdvReac Type Severity Reaction Status Date / Time Iodinated Contrast Media Allergy Anaphylaxis Verified 01/04/25 09:30 Physical Exam Vitals: Vital Signs Temp Pulse Pulse Resp BP BP Pulse Ox 01/04/25 07:19 98.5 F 76 17 113/67 97 01/04/25 02:09 98.2 F 79 16 108/73 96 01/04/25 02:00 97.4 F L 61 14 92/53 96 01/04/25 00:21 88 16 109/65 95 01/03/25 22:11 97.9 F 81 18 118/52 98 Intake and Output 01/03/25 01/04/25 01/04/25 22:59 06:59 14:59 Intake Total 540 Output Total 250 800 Balance -250 -260 Intake: Oral 540 Output: Urine 250 800 Other: Weight 96.615 kg 96.615 kg Results - Lab Results Most recent lab results Calcium 9.9 mg/dL (8.4-10.2) 01/04/25 04:09 Phosphorus 3.2 mg/dL (2.5-4.5) 01/04/25 04:09 Magnesium 1.7 mg/dL (1.6-2.3) 01/04/25 04:09 01/04/25 04:09 01/04/25 04:09 Assessment and Plan Plan: Assessment: 1. Hypomagnesemia secondary to recent diuretic and PPI use. Replaced. Better. 2. Diabetes mellitus. 3. Benign hypertension. Stable. 4. History of aortic valve replacement. Plan: Maintain oral magnesium oxide. Check fractional excretion of magnesium. Hold off on diuretics. Can use amiloride if needed. PPI discontinued. Now on Pepcid. Thank you for the consultation. I will continue to follow the patient with you during his hospital stay.
--- NOTE | 2025-01-04 17:25 | P.DS ---
Providers Date of admission: 01/03/25 23:53 Expected date of discharge: 01/04/25 Attending physician: Dora Asif MD Consults: 01/03/25 23:52 Consult Physician Routine Consulting Provider: Moy Hart Consult Reason/Comments: hypoMg Do you want consulting provider notified?: Yes Primary care physician: Sunny Pierce DO Hospital Course: Hospital course: Patient is a 69-year-old male history of persistent hypomagnesemia, hypertension, type 2 diabetes, mechanical heart valve on Coumadin, history of CVA/TIA, history of aortic dissection, repaired presenting for persistent hypomagnesemia. Patient was recently admitted to our facility with similar complaints. Was seen by nephrology, attributed hypomagnesemia to PPI use. Patient claims that he went for laboratory checkup, was asked by his PCP to come back to the hospital for persistent hypomagnesemia. He denies any chest pain, shortness of breath, palpitations, abdominal pain, nausea, vomiting, urinary or bowel complaints. He is on PPI for for GI prophylaxis in the setting of warfarin use. He was still taking his PPI as of yesterday. In the ED, temperature was 97.9, pulse 81, respiratory rate 18, blood pressure 118/52, saturating at 98% on room air. Hemoglobin 10.2, around baseline, potassium 3.9, creatinine 1.06, magnesium 0.5, total bili 1.4. No imaging. Patient given 4 g of IV magnesium sulfate in the ED, as well as 800 mg of p.o. magnesium oxide. Patient admitted for persistent hypomagnesemia, nephrology also consulted. Patient was seen at bedside on 01/04/2025 with no symptoms. Labs showed WBC 5.85, hemoglobin 9.8, hematocrit 30.9, platelet 188, sodium 136, chloride 99, BUN 23, creatinine 1.03, magnesium 1.7, total bili 1.2. Patient is medically stable to be discharged back home. Discussed with nephrology and they recommended to repeat magnesium in 2 to 3 days after discharge. Omeprazole 20 mg daily has been discontinued and patient will start on famotidine 20 mg daily. Patient will follow-up with PCP in 1 to 3 days after discharge. Physical exam GENERAL: This is a 69-year-old in no apparent distress at the time of examination. Pleasant and cooperative. HEENT: Head is atraumatic, normocephalic. Pupils are equal, round, and reactive to light. Sclerae anicteric. Conjunctivae are clear. Mucus membranes of the mouth are moist. Neck is supple. RESPIRATORY: Clear to auscultation. No wheezes, rales, or rhonchi. No use of accessory muscles. Patient maintaining oxygen saturation greater than 92%. No chest wall tenderness is noted on palpation or with deep breathing. CARDIOVASCULAR: Regular rate and rhythm. S1 and S2 noted. No systolic or diastolic murmur auscultated. No JVD noted. No S3 or S4 noted. GASTROINTESTINAL: No distention noted. Abdomen soft and round. Normal active bowel sounds auscultated x 4 quadrants. No pain or tenderness noted upon palpation. INTEGUMENTARY: No cyanosis. No jaundice. No rashes noted. No cellulitis noted. EXTREMITIES: 2+ peripheral pulses. No evidence of peripheral edema. No calf tenderness noted. NEUROLOGIC: Cranial nerves II-XII intact. PSYCHIATRIC: Awake, alert, and oriented X 3. Appropriate affect. Intact judgement and insight. Discharge diagnosis Persistent hypomagnesemia, likely in the setting of PPI use Mechanical heart valve on Coumadin Type 2 diabetes Dyslipidemia Hypertension History of CVA/TIA History of aortic dissection A total of 32 minutes of time were spent preparing this complex discharge summary. Patient was discharged on 01/04/2025 at 1115. I have seen and evaluated the patient today. Discussed with the resident and agree with the residents finding and plan as documented in the resident's note. Changes highlighted in blue font. Patient Condition at Discharge: Fair Plan - Discharge Summary Discharge Rx Participant: Yes New Discharge Prescriptions: New Famotidine [Pepcid] 20 mg PO DAILY #90 tablet Continue Calcium Carbonate 500 mg PO DAILY@0800 Acetaminophen Tab [Tylenol] 650 mg PO Q6HR PRN tab PRN Reason: Mild Pain Or Fever > 100.5 Potassium Chloride [Klor-Con M20] 20 meq PO DAILY@0800 Metoprolol Tartrate [Lopressor] 100 mg PO BID@0800,2000 metFORMIN HCL [Glucophage] 500 mg PO DAILY@0800 Magnesium Oxide [Mag-Ox] 400 mg PO TID@0000,0800,1600 Warfarin [Coumadin] 12.5 mg PO HS@2000 Atorvastatin [Lipitor] 10 mg PO HS@2000 Losartan Potassium [Cozaar] 50 mg PO DAILY@0800 #0 Discontinued Omeprazole [PriLOSEC] 20 mg PO DAILY@0800 Discharge Medication List Atorvastatin [Lipitor] 10 mg PO HS@199912/14/24 [History] Calcium Carbonate 500 mg PO DAILY@0800 12/14/24 [History] Magnesium Oxide [Mag-Ox] 400 mg PO TID@0000,0800,1600 12/14/24 [History] Metoprolol Tartrate [Lopressor] 100 mg PO BID@0800,199912/14/24 [History] Potassium Chloride [Klor-Con M20] 20 meq PO DAILY@0800 12/14/24 [History] Warfarin [Coumadin] 12.5 mg PO HS@199912/14/24 [History] metFORMIN HCL [Glucophage] 500 mg PO DAILY@0812/14/24 [History] Acetaminophen Tab [Tylenol] 650 mg PO Q6HR PRN tab 12/29/24 [Rx] Losartan Potassium [Cozaar] 50 mg PO DAILY@0800 #0 12/29/24 [Rx] Famotidine [Pepcid] 20 mg PO DAILY #90 tablet 01/04/25 [Rx] Follow up Appointment(s)/Referral(s): Sunny Pierce DO [Primary Care Provider] - 01/11/25 11:20 am Moy Hart DO [STAFF PHYSICIAN] - 1 Week (Please make own appt. 1-2 weeks. Office closed for lunch at time of discharge. ) Ambulatory/Diagnostic Orders: Basic Metabolic Panel [LAB.AMB] Time Frame: 3 Days, Location: None Selected Magnesium [LAB.AMB] Time Frame: 3 Days, Location: None Selected Patient Instructions/Handouts: Hypomagnesemia (DC) Activity/Diet/Wound Care/Special Instructions: Repeat bloodwork in 3 days. Results to go to Primary Care Physician and Dr. Hart. Discharge Disposition: HOME SELF-CARE
[2025-01-04] MEDS ORDERED: WARFARIN 5 MG TAB PO SCH (18:00)
[2025-01-04] MEDS ORDERED: WARFARIN 7.5 MG TAB PO SCH (18:00)
[2025-01-04] MEDS ORDERED: ATORVASTATIN 10 MG TAB PO SCH (20:00)
== END 2025-01-04 14:00 | disposition home or self-care (01) | DRG 641 ==
LOC: EC 22:03 → 5NMEDONC 23:53
PROVIDERS: ADMIT Internal Medicine; ATTEND Internal Medicine
DX: E83.42 Hypomagnesemia (principal); E11.9 Type 2 diabetes mellitus without complications; I10 Essential (primary) hypertension; Z95.2 Presence of prosthetic heart valve; I48.91 Unspecified atrial fibrillation; T50.2X5A Adverse effect of carbonic-anhydrase inhibitors, benzothiadiazides and other diuretics, initial encounter; R19.7 Diarrhea, unspecified; E78.5 Hyperlipidemia, unspecified; Z79.01 Long term (current) use of anticoagulants; Z79.84 Long term (current) use of oral hypoglycemic drugs; Z79.899 Other long term (current) drug therapy; Z86.73 Personal history of transient ischemic attack (TIA), and cerebral infarction without residual deficits; Z28.310 Unvaccinated for COVID-19; Z86.79 Personal history of other diseases of the circulatory system; Z91.041 Radiographic dye allergy status
CPT/HCPCS: 36415; 80053; 82570; 83735; 84100; 85025; 85610; 96365; 96366; 99285

== ENCOUNTER → 2025-01-07 | Outpatient (CLI) | payer MEDICARE ==
[2025-01-07 15:04] LABS: INR 2.82 sec (0.93-1.11); Prothrombin Time 29.8 sec (9.9-11.9)
[2025-01-07 16:28] LABS: Magnesium 1.4 mg/dL (1.5-2.4)
[2025-01-07 16:40] LABS: BUN/Creat Ratio 17.64 Ratio (12.00-20.00); Blood Urea Nitrogen 19.4 mg/dL (9.0-27.0); Calcium 10.2 mg/dL (8.7-10.3); Carbon Dioxide 24.8 mmol/L (21.6-31.8); Chloride 104 mmol/L (96-109); Glucose 80 mg/dL (70-110); Potassium 4.3 mmol/L (3.5-5.5); Sodium 141 mmol/L (135-145)
== END | disposition home or self-care (01) ==
LOC: LABWHC1 08:36
PROVIDERS: ATTEND Student in an Organized Health Care Education/Training Program
DX: E83.42 Hypomagnesemia (principal)
CPT/HCPCS: 36415; 80048; 83735; 85610